=== PATIENT | female | born 1970 | race Caucasian/White ===

== ENCOUNTER 2017-03-23 15:55 | Outpatient (CLI) | payer MEDICARE, MEDICAID | END 2017-03-23 15:56 | disposition short-term general hospital (02) | LOC: EMS 15:55 | PROVIDERS: ATTEND Surgery | DX: R07.9 Chest pain, unspecified (principal) | CPT/HCPCS: A0425; A0427 ==

== ENCOUNTER 2017-05-04 02:10 | Outpatient (CLI) | payer MEDICARE, MEDICAID | END 2017-05-04 02:11 | disposition critical access hospital (66) | LOC: EMS 02:10 | PROVIDERS: ATTEND Surgery | DX: R52 Pain, unspecified (principal); W54.1XXA Struck by dog, initial encounter; W10.8XXA Fall (on) (from) other stairs and steps, initial encounter; Y92.039 Unspecified place in apartment as the place of occurrence of the external cause | CPT/HCPCS: A0425; A0429 ==

== ENCOUNTER 2017-05-04 02:25 | Emergency (ER) | payer MEDICARE, MEDICAID ==
[2017-05-04] MEDS ORDERED: ACETAMINOPHEN 500 MG TABLET PO STA (03:52)
--- NOTE | 2017-05-04 03:55 | CT Report ---
EXAM: CT HEAD EXAM DATE: 05/04/2017 03:36 AM. CLINICAL HISTORY: Fall with head injury. Ethanol intoxication. COMPARISON: 02/22/2014. TECHNIQUE: Multiaxial CT images were obtained from the foramen magnum to the vertex. Reformats: Coron al. IV contrast: None. In accordance with CT protocol optimization, one or more of the following dose reduction techniques w ere utilized for this exam: automated exposure control, adjustment of mA and/or KV based on patient s ize, or use of iterative reconstructive technique. FINDINGS: Parenchyma: No intraparenchymal hemorrhage. No evidence of mass, midline shift, or CT findings of inf arction. Sher-white differentiation is distinct. Extraaxial Spaces: Normal for age. No subdural or epidural collections identified. Ventricles: Normal in size and position. Sinuses and Orbits: Imaged paranasal sinuses, orbits, and mastoids show no significant abnormality. Bones: No evidence of fracture or calvarial defect. Other: No change since the prior study. IMPRESSION: No acute or focal intracranial abnormality. [facility] Referring Provider Line: [phone] SITE ID: [id number]
--- NOTE | 2017-05-04 03:57 | CT Report ---
EXAM: CT CERVICAL SPINE WITHOUT CONTRAST DATE: 05/04/2017 03:34 AM. HISTORY: Fall with head injury. Ethanol intoxication. COMPARISONS: None. TECHNIQUE: Thin-section axial images were acquired of the cervical spine without contrast. Post-proce ssing: Coronal and sagittal reformats. Other: None. In accordance with CT protocol optimization, one or more of the following dose reduction techniques w ere utilized for this exam: automated exposure control, adjustment of mA and/or KV based on patient s ize, or use of iterative reconstructive technique. FINDINGS: Alignment: No scoliosis or spondylolisthesis. Bones: No fracture or bone lesion. Interspace Levels/Facets: C1-C2: Unremarkable. C2-C3: Unremarkable. C3-C4: Unremarkable. C4-C5: Unremarkable. C5-C6: Disk/endplate osteophyte mildly narrows the central canal. Mild right-sided foraminal stenosis . C6-C7: Unremarkable. C7-T1: Unremarkable. Musculature: Normal. No fatty atrophy. Other: The paravertebral and prevertebral soft tissues are unremarkable. The lung apices are clear. IMPRESSION: Mild degenerative change at C5-C6. No fracture is identified. [facility] Referring Provider Line: [phone] SITE ID: [id number]
--- NOTE | 2017-05-04 04:01 | XRAY Report ---
EXAM: CHEST RADIOGRAPHY EXAM DATE: 05/04/2017 03:35 AM. CLINICAL HISTORY: Intoxication, fall down stairs. COMPARISON: 03/25/2013. TECHNIQUE: 2 views. FINDINGS: Lungs/Pleura: No alveolar consolidation or pleural effusion seen. No pneumothorax. Mediastinum: Heart and mediastinal contours are unremarkable. Other: None. IMPRESSION: 1. No acute abnormality seen in the chest. [facility] Referring Provider Line: [phone] SITE ID: [id number]
[2017-05-04 04:30] VITALS: BP 127/89
--- NOTE | 2017-05-04 04:31 | ED Physician Documentation ---
PD HPI Fall - Stated complaint Stated Complaint: FALL 13 STAIRS/ETOH - Chief complaint Chief Complaint: Ext Problem - History obtained from History obtained from: Patient, EMS - History of Present Illness Mechanism of injury: Slipped Fall distance: Other (approximately 13 steps) Where injury occurred: Home Timing - onset: Today Injury(ies) location: Head, Back Associated symptoms: AMS. No: Nausea / vomiting Contributing factors: Intoxicated Similar symptoms before: Has not had sx before Recently seen: Not recently seen - Additional information Additional information: Patient is a 46 year old female who was brought in by ems for falling down 13 stairs. Patient admits to drinking tonight and states that she was out trying to walk her dog when she slipped down the stairs. Patient is complaining of knee pain and back pain. 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 - Present Medications Home Medications: Ambulatory Orders Medication Instructions Recorded Confirmed Alprazolam [Xanax] 2 mg PO BID PRN 11/20/12 05/04/17 Omeprazole 20 mg PO BID PRN 11/20/12 05/04/17 DULoxetine [Cymbalta] 60 mg PO DAILY 06/25/13 05/04/17 Zolpidem Tartrate [Ambien] 10 mg PO QPM PRN 06/25/13 05/04/17 Atorvastatin Calcium 20 mg PO DAILY 06/15/15 05/04/17 Carvedilol 3.125 mg PO BID 06/15/15 05/04/17 Hydrocodone/Acetaminophen [Lortab 1 each PO QID 06/15/15 05/04/17 10-325 mg Tablet] Ibuprofen 200 mg PO QID PRN 06/15/15 05/04/17 Lisinopril 10 mg PO DAILY 06/15/15 05/04/17 Loperamide [Imodium] 2 mg PO QID PRN 06/15/15 05/04/17 Meloxicam [Mobic] 15 mg PO DAILY 06/15/15 05/04/17 Prazosin HCl 1 mg PO QPM 06/15/15 05/04/17 Hydrocodone/Acetaminophen 1 - 2 each PO Q6H PRN #14 tablet 10/20/15 05/04/17 [Hydrocodon-Acetaminophen 5-325] - Allergies Allergies/Adverse Reactions: Allergies Allergy/AdvReac Type Severity Reaction Status Date / Time morphine Allergy Intermediate Itching Verified 05/04/17 02:32 metformin AdvReac Intermediate violently Verified 05/04/17 02:32 ill adhesive tape Allergy Intermediate Rash Uncoded 05/04/17 02:32 - Social History Does the pt smoke?: Yes Smoking Status: Current every day smoker Does the pt drink ETOH?: Yes Does the pt have substance abuse?: No - Immunizations Immunizations are current?: Yes - POLST Patient has POLST: No PD ED PE NORMAL - Vitals Vital signs reviewed: Yes - HEENT HEENT: Atraumatic, PERRL, Dentition benign - Cardiac Cardiac: RRR, No murmur - Respiratory Respiratory: No respiratory distress, Clear bilaterally - Abdomen Abdomen: Soft, Non tender, Non distended - Derm Derm: Normal color - Neuro Eye Opening: Spontaneous Motor: Obeys Commands Verbal: Oriented GCS Score: 15 PD ED PE EXPANDED - Neck Neck: Bony TTP - Back Back: Vertebral tenderness (thoracic vertebral tenderness with no step offs) - Derm Derm: Abrasion (s) (few abrasions on lower extremities) - Extremities Extremities: Right knee (minimal abrasion, full rom) Results - Vitals Vitals: Vital Signs - 24 hr 05/04/17 05/04/17 02:30 03:57 Temperature 36.2 C L Heart Rate 101 H 86 Respiratory 16 18 Rate Blood Pressure 105/76 127/89 H O2 Saturation 96 98 Oxygen O2 Source Room air - Rads (name of study) ct head Radiology: Final report received (no acute intracranial pathology) ct c-spine Radiology: Final report received (no fracture or dislocation) thoracic spine Radiology: Final report received (no acute fracture or dislocation) PD MEDICAL DECISION MAKING - ED course Complexity details: reviewed old records, reviewed results, re-evaluated patient , considered differential, d/w patient ED course: Patient was seen and examined at bedside. Imaging was ordered. patient was treated with tylenol for pain. When patient returned from imaging the results were reviewed. patient had no acute traumatic injuries. Patient did have an episode when she was sitting on the toilet and fell forward onto her knees. Patient sustained no new injuries. Patient's friend was at bedside and was able to take the patient home when she reached an appropriate level of sobriety. Departure - Departure Disposition: 01 Home, Self Care Clinical Impression: Alcoholic intoxication Condition: Good Instructions: ED Alcohol Intoxication Follow-Up: primary,care provider [Other] - Within 3 Days Comments: Your diagnostics today were within normal limits. there were no acute fractures or dislocations. You will likely be more sore tomorrow and the next day. You can take motrin or tylenol as needed for pain. You should refrain from drinking so heavily. You should follow up with your doctor for routine care. You may return to the emergency department at any time for new, worsening or uncontrollable symptoms. Discharge Date/Time: 05/04/17 06:17
--- NOTE | 2017-05-04 05:58 | XRAY Report ---
EXAM: THORACIC SPINE RADIOGRAPHY EXAM DATE: 05/04/2017 03:36 AM. CLINICAL HISTORY: Pain after injury. Intoxication. COMPARISON: None. TECHNIQUE: 3 views. FINDINGS: Alignment: Unremarkable. Bones: No fracture seen. Disks: Mild multilevel degenerative changes. Soft Tissues: Unremarkable. IMPRESSION: 1. No acute thoracic spine abnormality seen. [facility] Referring Provider Line: [phone] SITE ID: [id number]
== END 2017-05-04 06:17 | disposition home or self-care (01) ==
LOC: EDUNIT# → ED 02:25
DX: F10.129 Alcohol abuse with intoxication, unspecified (principal); S80.211A Abrasion, right knee, initial encounter; S80.812A Abrasion, left lower leg, initial encounter; S80.811A Abrasion, right lower leg, initial encounter; W10.9XXA Fall (on) (from) unspecified stairs and steps, initial encounter; Y93.01 Activity, walking, marching and hiking; Y92.009 Unspecified place in unspecified non-institutional (private) residence as the place of occurrence of the external cause; I10 Essential (primary) hypertension; E78.00 Pure hypercholesterolemia, unspecified; E11.9 Type 2 diabetes mellitus without complications; F17.200 Nicotine dependence, unspecified, uncomplicated
CPT/HCPCS: 70450; 71020; 72072; 72125; 99283; 99284; A9270

== ENCOUNTER 2017-09-13 05:43 | Outpatient (CLI) | payer MEDICARE, MEDICAID | END 2017-09-13 05:44 | disposition critical access hospital (66) | LOC: EMS 05:43 | PROVIDERS: ATTEND Surgery | DX: M25.562 Pain in left knee (principal); W01.0XXA Fall on same level from slipping, tripping and stumbling without subsequent striking against object, initial encounter; Y93.H2 Activity, gardening and landscaping | CPT/HCPCS: A0425; A0429 ==

== ENCOUNTER 2017-09-13 05:59 | Emergency (ER) | payer MEDICARE, MEDICAID ==
[2017-09-13 06:06] VITALS: BP 97/74
--- NOTE | 2017-09-13 06:06 | ED Physician Documentation ---
PD HPI LOWER EXT INJURY - Stated complaint Stated Complaint: FALL/KNEE PAIN - History obtained from History obtained from: Patient, EMS - History of Present Illness PD HPI LOW EXT INJURY LOCATION: Left, Knee Type of injury: Fall, Twist Where injury occurred: Home Timing - onset: How many hours ago (12) Timing - details: Abrupt onset, Still present Worsened by: Moving, Palpating Associated symptoms: Swelling Similar symptoms before: Has not had sx before Recently seen: Not recently seen - Additional information Additional information: Patient is a 47 year old female with a history of fibromyalgia and peripheral neuropathy who is presenting to the emergency department for left knee pain. patient was watering plants yesterday and slipped on water on the floor and fell unto linoleum tiles. this happened about 12 hours prior. Patient tried to deal with it but was having trouble ambulating so she called ems to bring her in for evaluation. 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 - Present Medications Home Medications: Ambulatory Orders Medication Instructions Recorded Confirmed Alprazolam [Xanax] 2 mg PO BID PRN 11/20/12 05/04/17 Omeprazole 20 mg PO BID PRN 11/20/12 05/04/17 DULoxetine [Cymbalta] 60 mg PO DAILY 06/25/13 05/04/17 Zolpidem Tartrate [Ambien] 10 mg PO QPM PRN 06/25/13 05/04/17 Atorvastatin Calcium 20 mg PO DAILY 06/15/15 05/04/17 Carvedilol 3.125 mg PO BID 06/15/15 05/04/17 Hydrocodone/Acetaminophen [Lortab 1 each PO QID 06/15/15 05/04/17 10-325 mg Tablet] Ibuprofen 200 mg PO QID PRN 06/15/15 05/04/17 Lisinopril 10 mg PO DAILY 02/11/16 12/31/17 Loperamide [Imodium] 2 mg PO QID PRN 06/15/15 05/04/17 Meloxicam [Mobic] 15 mg PO DAILY 06/15/15 05/04/17 Prazosin HCl 1 mg PO QPM 06/15/15 05/04/17 Hydrocodone/Acetaminophen 1 - 2 each PO Q6H PRN #14 tablet 10/20/15 05/04/17 [Hydrocodon-Acetaminophen 5-325] - Allergies Allergies/Adverse Reactions: Allergies Allergy/AdvReac Type Severity Reaction Status Date / Time morphine Allergy Intermediate Itching Verified 09/13/17 06:06 metformin AdvReac Intermediate violently Verified 09/13/17 06:06 ill adhesive tape Allergy Intermediate Rash Uncoded 05/04/17 02:32 - Social History Does the pt smoke?: Yes Smoking Status: Current every day smoker Does the pt drink ETOH?: Yes Does the pt have substance abuse?: No - Immunizations Immunizations are current?: Yes - POLST Patient has POLST: No PD ED PE NORMAL - Vitals Vital signs reviewed: Yes - General General: Alert and oriented X 3, No acute distress - HEENT HEENT: Atraumatic - Cardiac Cardiac: RRR - Respiratory Respiratory: No respiratory distress - Derm Derm: Normal color - Neuro Neuro: Alert and oriented X 3, Normal speech Eye Opening: Spontaneous PD ED PE EXPANDED - Extremities Extremities: Tenderness, Swelling, Left knee (tenderness to palpation of left knee, no gross deformity, mild swelling, full passive rom). No: Bruising, Abrasion, Laceration Results - Vitals Vitals: Vital Signs - 24 hr 09/13/17 06:05 Temperature 36.6 C Heart Rate 97 Respiratory 19 Rate Blood Pressure 97/74 O2 Saturation 97 Oxygen O2 Source Room air - Rads (name of study) knee x-ray Radiology: Final report received (no acute fracture or dislocation) PD MEDICAL DECISION MAKING - ED course Complexity details: reviewed old records, reviewed results, re-evaluated patient , considered differential, d/w patient ED course: Patient was seen and examined at bedside. Patient was sent for imaging. When patient returned from imaging the results were reviewed. there was no acute fracture or dislocation. patient was placed in a knee immobilizer and given crutches. Patient required no further work up at this time and was stable for discharge with outpatient follow up. Departure - Departure Disposition: Home, Self Care Clinical Impression: Left knee sprain Condition: Good Instructions: ED Sprain Knee Follow-Up: Bashir Finch MD [Provider Admit Priv/Credential] - Comments: Your diagnostics today were within normal limits. there was no acute fracture or dislocation. If your symptoms persist you may need an mri for diagnosis. You should ice your knee at least 4 times, a day, and keep it elevated. You should wear the brace for comfort and take motrin or tylenol as needed for pain. You can follow up with Dr. Finch as needed. You may return to the emergency department at any time for new, worsening or uncontrollable symptoms.
[2017-09-13] MEDS ORDERED: IBUPROFEN 600 MG TABLET PO STA (06:33)
--- NOTE | 2017-09-13 06:33 | XRAY Report ---
EXAM: LEFT KNEE RADIOGRAPHY EXAM DATE: 09/13/2017 06:27 AM. CLINICAL HISTORY: Fell, knee pain. COMPARISON: 10/20/2015. TECHNIQUE: 3 views. FINDINGS: Bones: No fracture seen. Joints: No dislocation seen. Joint spaces appear preserved. Possible small joint effusion. Soft Tissues: Mild soft tissue swelling. IMPRESSION: 1. No acute fracture or dislocation seen. 2. Possible small joint effusion. [facility] Referring Provider Line: [phone] SITE ID: [id number]
== END 2017-09-13 07:02 | disposition home or self-care (01) ==
LOC: EDBD → EDUNIT# → SUPCPDRO 05:59 → ED 05:59
DX: S83.92XA Sprain of unspecified site of left knee, initial encounter (principal); W01.198A Fall on same level from slipping, tripping and stumbling with subsequent striking against other object, initial encounter; Y92.007 Garden or yard of unspecified non-institutional (private) residence as the place of occurrence of the external cause; M79.7 Fibromyalgia; E11.42 Type 2 diabetes mellitus with diabetic polyneuropathy; I10 Essential (primary) hypertension; E78.00 Pure hypercholesterolemia, unspecified; K21.9 Gastro-esophageal reflux disease without esophagitis; M19.90 Unspecified osteoarthritis, unspecified site; F17.200 Nicotine dependence, unspecified, uncomplicated; J44.9 Chronic obstructive pulmonary disease, unspecified
CPT/HCPCS: 73562; 99283; A9270

== ENCOUNTER 2017-10-31 10:39 | Outpatient (CLI) | payer MEDICARE, MEDICAID | END 2017-10-31 10:40 | disposition short-term general hospital (02) | LOC: EMS 10:39 | PROVIDERS: ATTEND Surgery | DX: R07.9 Chest pain, unspecified (principal) | CPT/HCPCS: A0425; A0427 ==

== ENCOUNTER 2017-11-22 18:47 | Outpatient (CLI) | payer MEDICARE, MEDICAID | END 2017-11-22 18:48 | disposition short-term general hospital (02) | LOC: EMS 18:47 | PROVIDERS: ATTEND Surgery | DX: R07.9 Chest pain, unspecified (principal) | CPT/HCPCS: A0425; A0427; A0888 ==

== ENCOUNTER 2018-02-25 15:51 | Outpatient (CLI) | payer MEDICARE, MEDICAID | END 2018-02-25 15:52 | disposition short-term general hospital (02) | LOC: EMS 15:51 | PROVIDERS: ATTEND Surgery | DX: R07.89 Other chest pain (principal); R42 Dizziness and giddiness | CPT/HCPCS: A0425; A0427; A0888 ==

== ENCOUNTER 2018-03-26 14:54 | Emergency (ER) | payer MEDICARE, MEDICAID, OTHER ==
[2018-03-26] MEDS ORDERED: BUFFERED LIDOCAINE 10 ML SYRINGE SUBQ STA (15:20)
--- NOTE | 2018-03-26 15:22 | ED Physician Documentation ---
PD HPI UPPER EXT INJURY - Stated complaint Stated Complaint: L THUMB LAC - Chief complaint Chief Complaint: Laceration - History obtained from History obtained from: Patient - History of Present Illness Location: Left (Ambidexterous woman who is up-to-date on tetanus stabbed herself accidentally with a knife while trying to open a can a cranberries just prior to arrival.) PD PAST MEDICAL HISTORY - Past Medical History Cardiovascular: Hypertension, High cholesterol Respiratory: Asthma, COPD, Pneumonia Neuro: None Endocrine/Autoimmune: Type 2 diabetes GI: GERD HEENT: None Psych: Depression, Anxiety Musculoskeletal: Osteoarthritis, Fibromyalgia - Past Surgical History Past Surgical History: Yes General: Appendectomy 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 - Present Medications Home Medications: Ambulatory Orders Medication Instructions Recorded Confirmed Alprazolam [Xanax] 2 mg PO BID PRN 11/20/12 05/04/17 Omeprazole 20 mg PO BID PRN 11/20/12 05/04/17 Zolpidem Tartrate [Ambien] 10 mg PO QPM PRN 06/25/13 05/04/17 Atorvastatin Calcium 20 mg PO DAILY 06/15/15 05/04/17 Carvedilol 3.125 mg PO BID 06/15/15 05/04/17 Ibuprofen 200 mg PO QID PRN 06/15/15 05/04/17 Lisinopril 10 mg PO DAILY 06/15/15 05/04/17 Loperamide [Imodium] 2 mg PO QID PRN 06/15/15 05/04/17 Prazosin HCl 1 mg PO QPM 06/15/15 05/04/17 FLUoxetine [PROzac] 03/26/18 03/26/18 Gabapentin 0 03/26/18 03/26/18 Isosorbide Mononitrate 03/26/18 - Allergies Allergies/Adverse Reactions: Allergies Allergy/AdvReac Type Severity Reaction Status Date / Time morphine Allergy Intermediate Itching Verified 09/13/17 06:06 metformin AdvReac Intermediate violently Verified 03/26/18 15:00 ill adhesive tape Allergy Intermediate Rash Uncoded 05/04/17 02:32 - Social History Does the pt smoke?: Yes Smoking Status: Current every day smoker Does the pt drink ETOH?: Yes Does the pt have substance abuse?: No - Immunizations Immunizations are current?: Yes - POLST Patient has POLST: No PD ED PE NORMAL - Vitals Vital signs reviewed: Yes - General General: Alert and oriented X 3, No acute distress - Extremities Extremities: Other (2cm lac in the first webscpace towards the thumb side with normal sensation in the thumb. ) - Neuro Neuro: Alert and oriented X 3, Normal speech - Psych Psych: Normal mood, Normal affect Results - Vitals Vitals: Vital Signs - 24 hr 03/26/18 14:58 Temperature 36.6 C Heart Rate 74 Respiratory 20 Rate Blood Pressure 111/72 O2 Saturation 96 Oxygen O2 Source Room air Procedures - Laceration (location) L hand Length in cm: 1.5 Wound type: Linear Neurovascular status: Sensory intact, Motor intact, Vascular intact Anesthesia: Lidocaine 1%, With bicarb Wound Preparation: Betadine, Irrigated copiously NS Skin layer closure: Nylon, Interrupted, Size #-0 - enter number (4-0), Sutures - enter # (3) Other: Tetanus UTD Complexity: Simple Departure - Departure Disposition: 01 Home, Self Care Clinical Impression: Laceration Condition: Good Record reviewed to determine appropriate education?: Yes Instructions: ED Laceration Hand Comments: Come back for any signs of infection which would include: Redness, swelling, drainage, increased pain, or fevers. Follow-up with your physician in 14 days for suture removal.
[2018-03-26 15:53] VITALS: BP 112/70
== END 2018-03-26 15:52 | disposition home or self-care (01) ==
LOC: ED 14:54
DX: S61.012A Laceration without foreign body of left thumb without damage to nail, initial encounter (principal); W26.0XXA Contact with knife, initial encounter; Y93.G1 Activity, food preparation and clean up; I10 Essential (primary) hypertension; J44.9 Chronic obstructive pulmonary disease, unspecified; E11.9 Type 2 diabetes mellitus without complications; F17.200 Nicotine dependence, unspecified, uncomplicated
CPT/HCPCS: 12001; 99282; 99283

== ENCOUNTER 2018-08-03 10:09 | Outpatient (CLI) | payer MEDICARE, OTHER, MEDICAID | END 2018-08-03 10:10 | disposition short-term general hospital (02) | LOC: EMS 10:09 | PROVIDERS: ATTEND Surgery | DX: R07.9 Chest pain, unspecified (principal); M79.602 Pain in left arm; R20.0 Anesthesia of skin | CPT/HCPCS: A0425; A0427 ==

== ENCOUNTER 2018-10-12 02:44 | Outpatient (CLI) | payer MEDICARE, MEDICAID, OTHER | END 2018-10-12 02:45 | disposition critical access hospital (66) | LOC: EMS 02:44 | PROVIDERS: ATTEND Surgery | DX: R41.82 Altered mental status, unspecified (principal); R46.89 Other symptoms and signs involving appearance and behavior | CPT/HCPCS: A0425; A0429 ==

== ENCOUNTER 2018-10-12 03:01 | Emergency (ER) | payer MEDICARE, MEDICAID, OTHER ==
--- NOTE | 2018-10-12 04:41 | ED Physician Documentation ---
PD HPI ALTERED MENTAL STATUS - Stated complaint Stated Complaint: HBD - Chief complaint Chief Complaint: MHE - History obtained from History obtained from: Patient, EMS - History of Present Illness Timing - onset: Today Quality / character: Confused, Disoriented Basline status: Alert and oriented X 3, Ambulatory, Independent Recently seen: Not recently seen - Additional information Additional information: BIBA. patient was in communication with a friend in [place] (video w/ audio) to night, patient reportedly indicated to friend she did not feel well, became confused, and friend called 911. Review of Systems Constitutional: reports: Reviewed and negative Cardiac: reports: Reviewed and negative Respiratory: reports: Reviewed and negative GI: reports: Reviewed and negative : denies: Dysuria, Frequency, Now EGA Neurologic: reports: Confused, Altered mental status. 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 - Present Medications Home Medications: Ambulatory Orders Medication Instructions Recorded Confirmed Alprazolam [Xanax] 2 mg PO BID PRN 11/20/12 05/04/17 Omeprazole 20 mg PO BID PRN 11/20/12 05/04/17 Zolpidem Tartrate [Ambien] 10 mg PO QPM PRN 06/25/13 05/04/17 Atorvastatin Calcium 20 mg PO DAILY 06/15/15 05/04/17 Carvedilol 3.125 mg PO BID 06/15/15 05/04/17 Ibuprofen 200 mg PO QID PRN 06/15/15 05/04/17 Lisinopril 10 mg PO DAILY 06/15/15 05/04/17 Loperamide [Imodium] 2 mg PO QID PRN 06/15/15 05/04/17 Prazosin HCl 1 mg PO QPM 06/15/15 05/04/17 FLUoxetine [PROzac] 03/26/18 03/26/18 Gabapentin 0 03/26/18 03/26/18 Isosorbide Mononitrate 03/26/18 - Allergies Allergies/Adverse Reactions: Allergies Allergy/AdvReac Type Severity Reaction Status Date / Time morphine Allergy Intermediate Itching Verified 09/13/17 06:06 metformin AdvReac Intermediate violently Verified 03/26/18 15:00 ill adhesive tape Allergy Intermediate Rash Uncoded 05/04/17 02:32 - Social History Does the pt smoke?: Yes Smoking Status: Current every day smoker Does the pt drink ETOH?: Yes Does the pt have substance abuse?: No - Immunizations Immunizations are current?: Yes - POLST Patient has POLST: No PD ED PE NORMAL - Vitals Vital signs reviewed: Yes - General General: Alert and oriented X 3, No acute distress, Well developed/nourished - HEENT HEENT: Atraumatic, PERRL, EOMI, Moist mucous membranes - Neck Neck: Supple, no meningeal sign - Cardiac Cardiac: RRR, No murmur - Respiratory Respiratory: No respiratory distress, Clear bilaterally - Abdomen Abdomen: Soft, Non tender - Derm Derm: Normal color, Warm and dry - Neuro Neuro: Alert and oriented X 3, 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, No motor deficit, No sensory deficit, Normal speech Eye Opening: Spontaneous Motor: Obeys Commands Verbal: Oriented GCS Score: 15 - Psych Psych: Normal mood, Normal affect Results - Vitals Vitals: Oxygen O2 Source Room air - Labs Labs: Laboratory Tests 10/12/18 10/12/18 10/12/18 03:25 03:25 05:00 WBC 10.7 RBC 4.84 Hgb 14.4 Hct 42.5 MCV 87.7 MCH 29.7 MCHC 33.8 RDW 15.4 H Plt Count 345 MPV 8.1 Neut # (Auto) 6.0 Lymph # (Auto) 3.8 H Stephenson # (Auto) 0.8 Eos # (Auto) 0.1 Baso # (Auto) 0.0 Absolute Nucleated RBC 0.01 Nucleated RBC % 0.1 Sodium 148 H Potassium 3.6 Chloride 109 Carbon Dioxide 20 L Anion Gap 19.0 H BUN 6 Creatinine 0.6 Estimated GFR (MDRD) 106 Glucose 141 H Calcium 8.9 Total Bilirubin 0.5 AST 26 ALT 22 Alkaline Phosphatase 78 Total Protein 7.8 Albumin 4.0 Globulin 3.8 Albumin/Globulin Ratio 1.1 Lipase 88 H U Random Total Protein 9 Urine Opiates Screen Ur Oxycodone Screen Urine Methadone Screen Ur Propoxyphene Screen Ur Barbiturates Screen Ur Tricyclics Screen Ur Phencyclidine Scrn Ur Amphetamine Screen U Methamphetamines Scrn U Benzodiazepines Scrn Urine Cocaine Screen U Cannabinoids Screen Ethyl Alcohol 246.7 10/12/18 05:00 WBC RBC Hgb Hct MCV MCH MCHC RDW Plt Count MPV Neut # (Auto) Lymph # (Auto) Stephenson # (Auto) Eos # (Auto) Baso # (Auto) Absolute Nucleated RBC Nucleated RBC % Sodium Potassium Chloride Carbon Dioxide Anion Gap BUN Creatinine Estimated GFR (MDRD) Glucose Calcium Total Bilirubin AST ALT Alkaline Phosphatase Total Protein Albumin Globulin Albumin/Globulin Ratio Lipase U Random Total Protein Urine Opiates Screen NEGATIVE Ur Oxycodone Screen NEGATIVE Urine Methadone Screen NEGATIVE Ur Propoxyphene Screen NEGATIVE Ur Barbiturates Screen NEGATIVE Ur Tricyclics Screen NEGATIVE Ur Phencyclidine Scrn NEGATIVE Ur Amphetamine Screen NEGATIVE U Methamphetamines Scrn NEGATIVE U Benzodiazepines Scrn NEGATIVE Urine Cocaine Screen NEGATIVE U Cannabinoids Screen POSITIVE H Ethyl Alcohol - Rads (name of study) CT head Radiology: Prelim report reviewed, See rad report PD MEDICAL DECISION MAKING - ED course Complexity details: reviewed old records, reviewed results, re-evaluated patient, considered differential, d/w patient ED course: Patient is confused on arrival, repeatedly calling out help me (despite EDRN repeatedly trying to reassure and reorient patient). Early in ED stay, patients confusion and agitation rapidly resolved. She admits to alcohol and marijuana use tonight, denies drug use. Test results are reassuring and patient remained AAOx3 for remainder of ED stay. Departure - Departure Disposition: 01 Home, Self Care Clinical Impression: Altered mental status Qualifiers: Altered mental status type: unspecified Qualified Code(s): R41.82 - Altered mental status, unspecified Condition: Good Instructions: ED Altered Loc Discharge Date/Time: 10/12/18 06:20
[2018-10-12 05:03] LABS: MUDS CUTOFF CONCENTRATIONS CUTOFF CONC BELOW:
[2018-10-12] MEDS ORDERED: SODIUM CHLORIDE 0.9% 1,000 ML IV STA (05:05)
[2018-10-12 05:10] LABS: BASOPHILS % (AUTO) 0.4 %; EOSINOPHILS # (AUTO) 0.1 10^3/uL (0.0-0.7); EOSINOPHILS % (AUTO) 0.8 %; HGB - HEMOGLOBIN 14.4 g/dL (12.0-16.0); LYMPHOCYTES # (AUTO) 3.8 10^3/uL (1.5-3.5); LYMPHOCYTES % (AUTO) 35.3 %; MEAN CORPUSCULAR HEMOGLOBIN 29.7 pg (27.0-31.0); MEAN CORPUSCULAR HGB CONC 33.8 g/dL (32.0-36.0); MEAN CORPUSCULAR VOLUME 87.7 fL (81.0-99.0); MEAN PLATELET VOLUME 8.1 fL (7.9-10.8); MONOCYTES # (AUTO) 0.8 10^3/uL (0.0-1.0); MONOCYTES % (AUTO) 7.4 %; NEUTROPHILS % (AUTO) 56.1 %; PLT - PLATELET COUNT 345 10^3/uL (130-450); RED BLOOD COUNT 4.84 10^6/uL (4.20-5.40); RED CELL DISTRIBUTION WIDTH 15.4 % (12.0-15.0); WHITE BLOOD COUNT 10.7 x10^3/uL (4.8-10.8)
[2018-10-12 05:14] LABS: AMPHETAMINE SCREEN,URINE NEGATIVE (NEGATIVE); BENZODIAZEPINES SCREEN, URINE NEGATIVE (NEGATIVE); COCAINE SCREEN URINE NEGATIVE (NEGATIVE); METHADONE SCREEN, URINE NEGATIVE (NEGATIVE); METHAMPHETAMINES SCREEN, URINE NEGATIVE (NEGATIVE); OPIATE SCREEN, URINE NEGATIVE (NEGATIVE); OXYCODONE SCREEN, URINE NEGATIVE (NEGATIVE); PROPOXYPHENE SCREEN, URINE NEGATIVE (NEGATIVE); TRICYCLIC ANTIDEPRESSANT,URINE NEGATIVE (NEGATIVE)
[2018-10-12 05:22] LABS: ALBUMIN/GLOBULIN RATIO 1.1 (1.0-2.2); BILIRUBIN,TOTAL 0.5 mg/dL (0.2-1.0); CALCIUM 8.9 mg/dL (8.5-10.3); CREATININE 0.6 mg/dL (0.4-1.0); TOTAL PROTEIN 7.8 g/dL (6.7-8.2)
--- NOTE | 2018-10-12 05:40 | CT Report ---
Reason: AMS Procedure Date: 10/12/2018 Accession Number: [id number] / [id number] Procedure: CT - HEAD WO CPT Code: FULL RESULT: EXAM: CT HEAD EXAM DATE: 10/12/2018 05:16 AM. CLINICAL HISTORY: AMS. COMPARISON: HEAD W/O 05/04/2017 2:59 AM. TECHNIQUE: Multiaxial CT images were obtained from the foramen magnum to the vertex. Reformats: Sagittal and coronal. IV contrast: None. In accordance with CT protocol optimization, one or more of the following dose reduction techniques were utilized for this exam: automated exposure control, adjustment of mA and/or KV based on patient size, or use of iterative reconstructive technique. FINDINGS: Parenchyma: No intraparenchymal hemorrhage. No evidence of mass, midline shift, or CT findings of infarction. Sher-white differentiation is distinct. Extraaxial Spaces: Normal for age. No subdural or epidural collections identified. Ventricles: Normal in size and position. Sinuses and Orbits: Imaged paranasal sinuses, orbits, and mastoids show no significant abnormality. Bones: No evidence of fracture or calvarial defect. Other: None. IMPRESSION: Negative noncontrast CT head. No significant change compared to 05/04/2017. RADIA
[2018-10-12 06:01] VITALS: BP 134/86
== END 2018-10-12 06:20 | disposition home or self-care (01) ==
LOC: EDUNIT# → ED 03:01
DX: R41.82 Altered mental status, unspecified (principal); R45.1 Restlessness and agitation; I10 Essential (primary) hypertension; E11.9 Type 2 diabetes mellitus without complications; F10.10 Alcohol abuse, uncomplicated; F12.90 Cannabis use, unspecified, uncomplicated; F17.200 Nicotine dependence, unspecified, uncomplicated
CPT/HCPCS: 36415; 70450; 80053; 80306; 80320; 83690; 84156; 85025; 99283

== ENCOUNTER 2018-11-23 11:47 | Emergency (ER) | payer MEDICARE, MEDICAID, OTHER ==
[2018-11-23 12:23] VITALS: BP 143/91
--- NOTE | 2018-11-23 13:47 | ED Physician Documentation ---
PD HPI LOWER EXT INJURY - Stated complaint Stated Complaint: LT HIP PX - Chief complaint Chief Complaint: Trauma Ext - History obtained from History obtained from: Patient - History of Present Illness PD HPI LOW EXT INJURY LOCATION: Left (Twisted to left at 11am and felt a pop in the hip. 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 - Present Medications Home Medications: Ambulatory Orders Medication Instructions Recorded Confirmed Alprazolam [Xanax] 2 mg PO BID PRN 11/20/12 05/04/17 RX: Omeprazole 20 mg PO BID PRN 11/20/12 05/04/17 Zolpidem Tartrate [Ambien] 10 mg PO QPM PRN 06/25/13 05/04/17 Loperamide [Imodium] 2 mg PO QID PRN 06/15/15 05/04/17 RX: Atorvastatin Calcium 20 mg PO DAILY 06/15/15 05/04/17 RX: Carvedilol 3.125 mg PO BID 06/15/15 05/04/17 RX: Ibuprofen 200 mg PO QID PRN 06/15/15 05/04/17 RX: Lisinopril 10 mg PO DAILY 06/15/15 05/04/17 RX: Prazosin HCl 1 mg PO QPM 06/15/15 05/04/17 RX: FLUoxetine [PROzac] 03/26/18 03/26/18 RX: Gabapentin 0 03/26/18 03/26/18 RX: Isosorbide Mononitrate 03/26/18 Ibuprofen [Motrin] 800 mg PO Q8H PRN #30 tablet 11/23/18 Oxycodone HCl/Acetaminophen 1 - 2 each PO Q6H PRN #14 tablet 11/23/18 [Percocet 5-325 mg Tablet] - Allergies Allergies/Adverse Reactions: Allergies Allergy/AdvReac Type Severity Reaction Status Date / Time morphine Allergy Intermediate Itching Verified 09/13/17 06:06 metformin AdvReac Intermediate violently Verified 03/26/18 15:00 ill adhesive tape Allergy Intermediate Rash Uncoded 05/04/17 02:32 - Social History Does the pt smoke?: Yes Smoking Status: Current every day smoker Does the pt drink ETOH?: Yes Does the pt have substance abuse?: No - Immunizations Immunizations are current?: Yes - POLST Patient has POLST: No PD ED PE NORMAL - Vitals Vital signs reviewed: Yes - General General: Alert and oriented X 3, No acute distress - HEENT HEENT: PERRL, EOMI - Neck Neck: Supple, no meningeal sign, No bony TTP - Cardiac Cardiac: RRR, No murmur - Respiratory Respiratory: No respiratory distress, Clear bilaterally - Abdomen Abdomen: Non tender - Back Back: No CVA TTP, No spinal TTP - Derm Derm: Normal color, Warm and dry - Neuro Neuro: Alert and oriented X 3, Normal speech Results - Vitals Vitals: Vital Signs - 24 hr 11/23/18 12:18 Temperature 36.8 C Heart Rate 72 Respiratory 18 Rate Blood Pressure 143/91 H O2 Saturation 97 Oxygen O2 Source Room air - Rads (name of study) Hip XR Radiology: EMP read contemporaneously (osteophytes, NAD) PD MEDICAL DECISION MAKING - ED course ED course: Hip injury, just a twisting injury, x-ray negative and no osteopenia. She was able to walk and bear weight with the assistance of a walker. Departure - Departure Disposition: 01 Home, Self Care Clinical Impression: Sprain of left hip Condition: Good Record reviewed to determine appropriate education?: Yes Instructions: ED Sprain Hip Prescriptions: Ibuprofen [Motrin] 800 mg PO Q8H PRN #30 tablet PRN Reason: PAIN &/OR FEVER Oxycodone HCl/Acetaminophen [Percocet 5-325 mg Tablet] 1 - 2 each PO Q6H PRN #14 tablet PRN Reason: pain Comments: He can walk and bear weight with a walker. Return for new or worsening symptoms. Follow-up with your doctor in 1 week if not better, return if worse. Your blood pressure was elevated today on check into the emergency department. This does not mean that you have hypertension, it is a common phenomenon to come to the emergency department and have elevated blood pressure. I recommend that you see your primary care physician within the week to have it rechecked when you are feeling better. Do not drink or drive while taking narcotic pain medication. Note that many narcotic pain relievers also contain Tylenol/acetaminophen. Please ensure that your total dose of acetaminophen from all sources does not exceed 3 g (3000 mg) per day. You may get constipated while on this medication. Take a stool softener such as Colace twice a day while you are on it. Also add an [id number] laxative such as senna or MiraLAX on any day that you do not have a bowel movement. If you received a narcotic pain medication or sedative while in the emergency department, do not drive for the next 24 hours. Discharge Date/Time: 11/23/18 14:57
[2018-11-23] MEDS ORDERED: oxyCODONE 5 MG TABLET PO STA (13:48)
--- NOTE | 2018-11-23 14:08 | XRAY Report ---
Reason: hip injury Procedure Date: 11/23/2018 Accession Number: [id number] / [id number] Procedure: XR - Hip w/Pelvis 2-3V LT CPT Code: FULL RESULT: EXAM: LEFT HIP RADIOGRAPHY EXAM DATE: 11/23/2018 01:52 PM. CLINICAL HISTORY: Left hip pain after a twisting injury today. COMPARISON: None. TECHNIQUE: 2 views. FINDINGS: Bones: Normal. No fractures or bone lesion. Joints: There is no acute fracture or dislocation. Prominent acetabular osteophytosis and overhang is seen on the left. No subluxation. Soft Tissues: Normal. No soft tissue swelling. IMPRESSION: No acute fracture or dislocation. RADIA
== END 2018-11-23 14:57 | disposition home or self-care (01) ==
LOC: ED 11:47
DX: S73.102A Unspecified sprain of left hip, initial encounter (principal); X50.1XXA Overexertion from prolonged static or awkward postures, initial encounter; Y93.89 Activity, other specified; I10 Essential (primary) hypertension; E11.9 Type 2 diabetes mellitus without complications; F17.200 Nicotine dependence, unspecified, uncomplicated
CPT/HCPCS: 73502; 99281; 99283; A9270

== ENCOUNTER 2018-11-27 11:07 | Emergency (ER) | payer MEDICARE, MEDICAID, OTHER ==
[2018-11-27 11:14] VITALS: BP 136/79
--- NOTE | 2018-11-27 11:53 | XRAY Report ---
Reason: fall, unable to ambulate. Procedure Date: 11/27/2018 Accession Number: [id number] / [id number] Procedure: XR - Hip w/Pelvis 2-3V LT CPT Code: FULL RESULT: EXAM: LEFT HIP RADIOGRAPHY EXAM DATE: 11/27/2018 11:31 AM. CLINICAL HISTORY: Fall. Unable to ambulate. Pain. COMPARISON: HIP W/PELVIS 2-3V LT 11/23/2018 1:46 PM. TECHNIQUE: 2 views. FINDINGS: Bones: No acute fracture or bony lesion. Degenerative spurring. Joints: Normal alignment. Mild joint space narrowing. No dislocation. Degenerative changes of the right hip joint and lower lumbar spine. Soft Tissues: Surgical clips again seen projected over the right lower quadrant. IMPRESSION: 1. No acute osseous abnormalities. Normal alignment. If there is a high clinical suspicion for an occult fracture then MRI recommended. 2. Degenerative changes of the left hip joint. RADIA
--- NOTE | 2018-11-27 13:57 | ED Physician Documentation ---
PD HPI LOWER EXT INJURY - Stated complaint Stated Complaint: LT HIP INJURY - Chief complaint Chief Complaint: Ext Problem - History obtained from History obtained from: Patient - History of Present Illness PD HPI LOW EXT INJURY LOCATION: Left, Hip Type of injury: Twist Where injury occurred: Home Timing - onset: How many days ago (2) Timing - duration: Days (2) Timing - details: Abrupt onset, Still present Severity Comments: severe Improved by: Nothing Worsened by: Moving, Palpating Associated symptoms: No: Weakness, Numbness, Tingling, Swelling, Discolored Contributing factors: No: Anticoagulated, Prior ortho surgery, Prosthetic joint, Work related Similar symptoms before: Has not had sx before Recently seen: Emergency Dept (had xrays which were negative yesterday) - Treatment prior to arrival Treatment prior to arrival: hydrocodone and ibuprofen Review of Systems Ten Systems: 10 systems reviewed and negative Constitutional: denies: Fever, Chills Cardiac: reports: Reviewed and negative Respiratory: reports: Reviewed and negative GI: denies: Abdominal Pain : reports: Reviewed and negative Skin: reports: Reviewed and negative Musculoskeletal: reports: Joint pain. 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 - Present Medications Home Medications: Ambulatory Orders Medication Instructions Recorded Confirmed Alprazolam [Xanax] 2 mg PO BID PRN 11/20/12 05/04/17 RX: Omeprazole 20 mg PO BID PRN 11/20/12 05/04/17 Zolpidem Tartrate [Ambien] 10 mg PO QPM PRN 06/25/13 05/04/17 Loperamide [Imodium] 2 mg PO QID PRN 06/15/15 05/04/17 RX: Atorvastatin Calcium 20 mg PO DAILY 06/15/15 05/04/17 RX: Carvedilol 3.125 mg PO BID 06/15/15 05/04/17 RX: Ibuprofen 200 mg PO QID PRN 06/15/15 05/04/17 RX: Lisinopril 10 mg PO DAILY 06/15/15 05/04/17 RX: Prazosin HCl 1 mg PO QPM 06/15/15 05/04/17 RX: FLUoxetine [PROzac] 03/26/18 03/26/18 RX: Gabapentin 0 03/26/18 03/26/18 RX: Isosorbide Mononitrate 03/26/18 Ibuprofen [Motrin] 800 mg PO Q8H PRN #30 tablet 11/23/18 Oxycodone HCl/Acetaminophen 1 - 2 each PO Q6H PRN #14 tablet 11/23/18 [Percocet 5-325 mg Tablet] - Allergies Allergies/Adverse Reactions: Allergies Allergy/AdvReac Type Severity Reaction Status Date / Time morphine Allergy Intermediate Itching Verified 09/13/17 06:06 metformin AdvReac Intermediate violently Verified 03/26/18 15:00 ill adhesive tape Allergy Intermediate Rash Uncoded 05/04/17 02:32 - Social History Does the pt smoke?: Yes Smoking Status: Current every day smoker Does the pt drink ETOH?: Yes Does the pt have substance abuse?: No - Immunizations Immunizations are current?: Yes - POLST Patient has POLST: No PD ED PE NORMAL - Vitals Vital signs reviewed: Yes - General General: Alert and oriented X 3, No acute distress, Well developed/nourished - HEENT HEENT: Atraumatic - Neck Neck: Supple, no meningeal sign - Cardiac Cardiac: RRR - Respiratory Respiratory: No respiratory distress - Abdomen Abdomen: Soft, Non tender, Non distended - Female Female : Deferred - Rectal Rectal: Deferred - Derm Derm: Normal color, Warm and dry, No rash - Neuro Neuro: Alert and oriented X 3, No motor deficit, No sensory deficit Eye Opening: Spontaneous Motor: Obeys Commands Verbal: Oriented GCS Score: 15 - Psych Psych: Normal mood, Normal affect PD ED PE EXPANDED - Extremities Extremities: Motor intact, Sensory intact, Vascular intact, Other (left hip tenderness to palaption, normal weight bearing and full ROM ) Results - Vitals Vitals: Vital Signs - 24 hr 11/27/18 11:11 Temperature 36.6 C Heart Rate 99 Respiratory 18 Rate Blood Pressure 136/79 H O2 Saturation 97 Oxygen O2 Source Room air - Rads (name of study) left hip xray Radiology: Final report received, EMP read contemporaneously, See rad report (negative) PD MEDICAL DECISION MAKING - ED course Complexity details: reviewed old records, reviewed results, considered differential, d/w patient ED course: DDx -hip fx, hip strain, contusion, pelvic fx Discussed ordering a CT to evaluate for occult fx but pt eloped prior to obtaining the images. Departure - Departure Disposition: ED Elope Clinical Impression: Strain of left hip Condition: Stable Record reviewed to determine appropriate education?: Yes Discharge Date/Time: 11/27/18 14:00
== END 2018-11-27 14:00 | disposition left against medical advice (07) ==
LOC: ED 11:07
DX: S76.012A Strain of muscle, fascia and tendon of left hip, initial encounter (principal); X50.1XXA Overexertion from prolonged static or awkward postures, initial encounter; Y92.009 Unspecified place in unspecified non-institutional (private) residence as the place of occurrence of the external cause; M16.12 Unilateral primary osteoarthritis, left hip; I10 Essential (primary) hypertension; E11.9 Type 2 diabetes mellitus without complications; F17.200 Nicotine dependence, unspecified, uncomplicated; Z53.20 Procedure and treatment not carried out because of patient's decision for unspecified reasons
CPT/HCPCS: 99282; 99283

== ENCOUNTER 2019-01-09 23:01 | Outpatient (CLI) | payer MEDICARE, MEDICAID, OTHER | END 2019-01-09 23:02 | disposition EMS.NT | LOC: EMS 23:01 | PROVIDERS: ATTEND Surgery | DX: R51 Headache (principal); Y04.2XXA Assault by strike against or bumped into by another person, initial encounter ==

== ENCOUNTER 2019-01-10 05:24 | Outpatient (CLI) | payer MEDICARE, MEDICAID, OTHER | END 2019-01-10 05:25 | disposition short-term general hospital (02) | LOC: EMS 05:24 | PROVIDERS: ATTEND Surgery | DX: R51 Headache (principal); R22.0 Localized swelling, mass and lump, head; Y04.2XXA Assault by strike against or bumped into by another person, initial encounter | CPT/HCPCS: A0425; A0429; A0888 ==

== ENCOUNTER 2019-03-26 15:03 | Outpatient (CLI) | payer MEDICARE, MEDICAID | END 2019-03-26 15:04 | disposition critical access hospital (66) | LOC: EMS 15:03 | PROVIDERS: ATTEND Surgery | DX: R47.81 Slurred speech (principal); R07.89 Other chest pain; R29.810 Facial weakness; R20.0 Anesthesia of skin | CPT/HCPCS: A0425; A0427 ==

== ENCOUNTER 2019-03-26 15:20 | Emergency (ER) | payer MEDICARE, MEDICAID, OTHER ==
--- NOTE | 2019-03-26 15:30 | ED Physician Documentation ---
History of Present Illness - Stated complaint Stated Complaint: STROKE - Additonal information Additional information: This is a 48-year-old female with a reported history of anxiety, past TIAs and alcohol use who presents with left-sided weakness. This occurred at around 13: 15, patient has had 1-2 drinks with friends earlier in the day and then she began having weakness in her left side and difficulty speaking. EMS was called patient reportedly wanted to stay home and they had difficulty convincing her to come to the hospital. Currently she states that she feels weak on the left side and she is having difficulty putting her words together. 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 - Present Medications Home Medications: Ambulatory Orders Medication Instructions Recorded Confirmed Alprazolam [Xanax] 2 mg PO BID PRN 11/20/12 05/04/17 Omeprazole 20 mg PO BID PRN 11/20/12 05/04/17 Zolpidem Tartrate [Ambien] 10 mg PO QPM PRN 06/25/13 05/04/17 Atorvastatin Calcium 20 mg PO DAILY 06/15/15 05/04/17 Ibuprofen 200 mg PO QID PRN 06/15/15 05/04/17 Lisinopril 10 mg PO DAILY 06/15/15 05/04/17 Loperamide [Imodium] 2 mg PO QID PRN 06/15/15 05/04/17 Prazosin HCl 1 mg PO QPM 06/15/15 05/04/17 carvediloL [Carvedilol] 3.125 mg PO BID 06/15/15 05/04/17 FLUoxetine [PROzac] 03/26/18 03/26/18 Gabapentin 0 03/26/18 03/26/18 Isosorbide Mononitrate 03/26/18 Ibuprofen [Motrin] 800 mg PO Q8H PRN #30 tablet 07/22/19 Oxycodone HCl/Acetaminophen 1 - 2 each PO Q6H PRN #14 tablet 11/23/18 [Percocet 5-325 mg Tablet] - Allergies Allergies/Adverse Reactions: Allergies Allergy/AdvReac Type Severity Reaction Status Date / Time morphine Allergy Intermediate Itching Verified 09/13/17 06:06 metformin AdvReac Intermediate violently Verified 03/26/18 15:00 ill adhesive tape Allergy Intermediate Rash Uncoded 05/04/17 02:32 - Social History Does the pt smoke?: Yes Smoking Status: Current every day smoker Does the pt drink ETOH?: Yes Does the pt have substance abuse?: No - Immunizations Immunizations are current?: Yes - POLST Patient has POLST: No PD ED PE NORMAL - Vitals Vital signs reviewed: Yes - General General: Alert and oriented X 3 - HEENT HEENT: Atraumatic, PERRL - Neck Neck: Supple, no meningeal sign - Cardiac Cardiac: RRR - Respiratory Respiratory: No respiratory distress - Abdomen Abdomen: Soft, Non tender, Non distended - Back Back: No CVA TTP - Derm Derm: Normal color - Extremities Extremities: No deformity, No tenderness to palpate - Neuro Neuro: Other (Patient is awake, alert, is answering questions. She has an odd manner of the speech where at times she will have very halting speech, and at times her speech is fairly normal for short phrases. Her sentence structure is normal and she does not have difficulty choosing words. Her pronunciation is quite good intermittently. She has no facial droop, her cranial nerves II through XII are all normal to testing. On strength testing she is unable to lift her left arm off the bed, but then when I test her coordination for dysmetria she has full 5 out of 5 strength with her left arm and is able to hold arm up for over 10 seconds. When distracted she has normal movements of all extremities. She has a volitional appearing and only intermittent dysmetria on the left as at times her hand is stable at times she moves it and wobbly circles. She is unable to lift her left leg off the bed on my testing, she has full 5 out of 5 strength with her right leg and her right arm.) Results - Vitals Vitals: Vital Signs - 24 hr 03/26/19 03/26/19 03/26/19 15:21 15:43 16:00 Temperature 36.7 C Heart Rate 104 H 99 109 H Respiratory 18 15 23 Rate Blood Pressure 130/103 H 115/90 H 123/81 H O2 Saturation 97 98 96 03/26/19 03/26/19 03/26/19 16:30 17:00 17:21 Temperature Heart Rate 105 H 98 92 Respiratory 27 H 16 16 Rate Blood Pressure 115/93 H 115/93 H O2 Saturation 97 97 03/26/19 03/26/19 17:30 18:32 Temperature Heart Rate 100 99 Respiratory 18 18 Rate Blood Pressure 130/79 130/79 O2 Saturation 95 99 Oxygen O2 Source Room air - Labs Labs: Laboratory Tests 03/26/19 03/26/19 03/26/19 16:13 16:13 16:13 WBC 8.9 RBC 4.64 Hgb 13.6 Hct 41.8 MCV 90.1 MCH 29.3 MCHC 32.5 RDW 15.2 H Plt Count 346 MPV 9.2 Neut # (Auto) 4.3 Lymph # (Auto) 3.6 H Darke # (Auto) 0.7 Eos # (Auto) 0.2 Baso # (Auto) 0.1 Absolute Nucleated RBC 0.00 Nucleated RBC % 0.0 PT 10.5 INR 0.9 Sodium 143 Potassium 3.7 Chloride 109 Carbon Dioxide 22 Anion Gap 12.0 BUN 12 Creatinine 0.5 Estimated GFR (MDRD) 131 Glucose 139 H Calcium 8.8 Total Bilirubin 0.3 AST 20 ALT 23 Alkaline Phosphatase 69 Troponin I High Sens Total Protein 7.6 Albumin 4.0 Globulin 3.6 Albumin/Globulin Ratio 1.1 Lipase 46 TSH Urine Color Urine Clarity Urine pH Ur Specific [place] Urine Protein Urine Glucose (UA) Urine Ketones Urine Occult Blood Urine Nitrite Urine Bilirubin Urine Urobilinogen Ur Leukocyte Esterase Ur Microscopic Review Urine Culture Comments Urine Opiates Screen Ur Oxycodone Screen Urine Methadone Screen Ur Propoxyphene Screen Ur Barbiturates Screen Ur Tricyclics Screen Ur Phencyclidine Scrn Ur Amphetamine Screen U Methamphetamines Scrn U Benzodiazepines Scrn Urine Cocaine Screen U Cannabinoids Screen Ethyl Alcohol 169.8 03/26/19 03/26/19 03/26/19 16:13 16:13 16:23 WBC RBC Hgb Hct MCV MCH MCHC RDW Plt Count MPV Neut # (Auto) Lymph # (Auto) Darke # (Auto) Eos # (Auto) Baso # (Auto) Absolute Nucleated RBC Nucleated RBC % PT INR Sodium Potassium Chloride Carbon Dioxide Anion Gap BUN Creatinine Estimated GFR (MDRD) Glucose Calcium Total Bilirubin AST ALT Alkaline Phosphatase Troponin I High Sens 5.0 Total Protein Albumin Globulin Albumin/Globulin Ratio Lipase TSH 1.01 Urine Color YELLOW Urine Clarity CLEAR Urine pH 6.0 Ur Specific [place] 1.010 Urine Protein NEGATIVE Urine Glucose (UA) NEGATIVE Urine Ketones NEGATIVE Urine Occult Blood NEGATIVE Urine Nitrite NEGATIVE Urine Bilirubin NEGATIVE Urine Urobilinogen 0.2 (NORMAL) Ur Leukocyte Esterase NEGATIVE Ur Microscopic Review NOT INDICATED Urine Culture Comments NOT INDICATED Urine Opiates Screen NEGATIVE Ur Oxycodone Screen NEGATIVE Urine Methadone Screen NEGATIVE Ur Propoxyphene Screen NEGATIVE Ur Barbiturates Screen NEGATIVE Ur Tricyclics Screen NEGATIVE Ur Phencyclidine Scrn NEGATIVE Ur Amphetamine Screen NEGATIVE U Methamphetamines Scrn NEGATIVE U Benzodiazepines Scrn NEGATIVE Urine Cocaine Screen NEGATIVE U Cannabinoids Screen POSITIVE H Ethyl Alcohol - Rads (name of study) CT head WO Radiology: Other (No acute intracranial abnormality) PD MEDICAL DECISION MAKING - ED course Complexity details: considered differential (Stroke, TIA, seizure, intoxication, conversion disorder) ED course: On arrival pt has speech changes and left arm weakness that do appear volitional as they are intermittent and when distracted her movement appears normal. However, given her strange presentation CT head was obtained showing no acute abnormality. Patient was reevaluated at 16:30, her strength and speech are improving. Additionally she was noted to get out of bed and walk without issue, but then when back in bed she endorsed continue leg weakness. She continues to have some voluntary appearing weakness in her left arm, but then when I do dysmetria testing she again has full strength in the arm and can hold it up for greater than 15 seconds without any drift whatsoever. At times she makes ataxic wavy movements with her arm and head, but other times she is still and she has no actual dysmetria and is she is able to hit the target of my finger without issue. Her speech at times is halting, but her pronunciation is normal and she will intermittently speak fluently in sentences without any issue whatsoever. I discussed with her that I do not think this is a stroke, and that her exam is very inconsistent and appears volitional and I would like her to give her best effort so that we do not do extraneous or agressive tests. She became somewhat frustrated upon hearing this and began talking fluently with absolutely no dysarthria or dysphasia. Her strength exam became normal. Labs show elevated ethanol level, otherwise unremarkable. On repeat evaluation at 1800 patient is speaking fluently in full sentences, has full strength, has no residual symptoms. She wants to go home and she thinks that this was caused by anxiety or stress. She thinks that multiple factors in life her blood to her stress level increasing and probably manifested in this way. She denies SI and is clinically sober. I agree that this appears to be a stress reaction and I do not think it was a TIA, seizure, stroke - it appeared very volitional. I discussed avoidance of alcohol, drugs. I also discussed close PCP follow up and return precautions and patient was discharged. She continues to have a normal neuro exam on discharge. Departure - Departure Disposition: 01 Home, Self Care Clinical Impression: Stress reaction Condition: Good Instructions: ED Stress React Follow-Up: Your,PCP [Other] - Within 1 week Comments: It is not clear what caused your symptoms today, but stress likely played a role. Your labs are reassuring, and your CT scan did not show signs of an obvious abnormality. If you are developing worsening or new concerning symptoms such as increasing chest pain, trouble breathing, weakness/numbness, return to the emergency department. Please follow with your primary care provider as soon as possible. Avoid drinking alcohol and any drug use, as these can lead to worsen your symptoms. Discharge Date/Time: 03/26/19 18:30
--- NOTE | 2019-03-26 15:54 | CT Report ---
Reason: Inconsistent L side weakness and speech change Procedure Date: 03/26/2019 Accession Number: [id number] / [id number] Procedure: CT - Head W/O Stroke Protocol CPT Code: Final Report FULL RESULT: EXAM: CT HEAD EXAM DATE: 03/26/2019 03:41 PM. CLINICAL HISTORY: Inconsistent L side weakness and speech change. COMPARISON: HEAD W/O 10/12/2018 5:16 AM. TECHNIQUE: Multiaxial CT images were obtained from the foramen magnum to the vertex. Reformats: Sagittal and coronal. IV contrast: None. In accordance with CT protocol optimization, one or more of the following dose reduction techniques were utilized for this exam: automated exposure control, adjustment of mA and/or KV based on patient size, or use of iterative reconstructive technique. FINDINGS: Parenchyma: No intraparenchymal hemorrhage. No evidence of mass, midline shift, or CT findings of acute infarction. Sher-white differentiation is distinct. Extraaxial Spaces: Normal for age. No subdural or epidural collections identified. Ventricles: Normal in size and position. Sinuses and Orbits: Imaged paranasal sinuses, orbits, and mastoids show no significant abnormality. Bones: No evidence of fracture or calvarial defect. Other: None. IMPRESSION: No intracranial hemorrhage. ASPECT score 10 out of 10. RADIA The above critical test findings were discussed with Francis Nicole by Dr. Rodri Colón at 03:52 PM on 03/26/2019.
[2019-03-26 16:20] LABS: BASOPHILS # (AUTO) 0.1 10^3/uL (0.0-0.1); BASOPHILS % (AUTO) 0.8 %; EOSINOPHILS # (AUTO) 0.2 10^3/uL (0.0-0.7); EOSINOPHILS % (AUTO) 1.8 %; HGB - HEMOGLOBIN 13.6 g/dL (12.0-16.0); LYMPHOCYTES # (AUTO) 3.6 10^3/uL (1.5-3.5); LYMPHOCYTES % (AUTO) 40.2 %; MEAN CORPUSCULAR HEMOGLOBIN 29.3 pg (27.0-31.0); MEAN CORPUSCULAR HGB CONC 32.5 g/dL (32.0-36.0); MEAN CORPUSCULAR VOLUME 90.1 fL (81.0-99.0); MEAN PLATELET VOLUME 9.2 fL (7.9-10.8); MONOCYTES # (AUTO) 0.7 10^3/uL (0.0-1.0); MONOCYTES % (AUTO) 7.3 %; NEUTROPHILS # (AUTO) 4.3 10^3/uL (1.5-6.6); NEUTROPHILS % (AUTO) 48.7 %; PLT - PLATELET COUNT 346 10^3/uL (130-450); RED BLOOD COUNT 4.64 10^6/uL (4.20-5.40); RED CELL DISTRIBUTION WIDTH 15.2 % (12.0-15.0); WHITE BLOOD COUNT 8.9 x10^3/uL (4.8-10.8)
--- NOTE | 2019-03-26 16:20 | XRAY Report ---
Reason: chest pain Procedure Date: 03/26/2019 Accession Number: [id number] / [id number] Procedure: XR - Chest 1 View X-Ray CPT Code: 49673 Final Report FULL RESULT: EXAM: CHEST RADIOGRAPHY EXAM DATE: 03/26/2019 03:50 PM. CLINICAL HISTORY: Chest pain. COMPARISON: CHEST 2 VIEW PA/LAT 05/04/2017 3:06 AM. TECHNIQUE: 1 view. FINDINGS: Lungs/Pleura: Mild interstitial prominence with some peribronchial cuffing. No localized infiltrate, consolidation, effusion, or pneumothorax. Mediastinum: Within exam limitations, the cardiomediastinal contour is normal. Other: None. IMPRESSION: Mild interstitial prominence, possible bronchitis or early edema. RADIA
[2019-03-26 16:27] LABS: MUDS CUTOFF CONCENTRATIONS CUTOFF CONC BELOW:
[2019-03-26 16:29] LABS: BILIRUBIN,URINE NEGATIVE (NEGATIVE); GLUCOSE, URINE (UA) NEGATIVE (NEGATIVE); KETONES,URINE (UA) NEGATIVE (NEGATIVE); LEUKOCYTE ESTERASE, URINE NEGATIVE (NEGATIVE); NITRITE,URINE NEGATIVE (NEGATIVE); OCCULT BLOOD,URINE NEGATIVE (NEGATIVE); PROTEIN,URINE NEGATIVE (NEGATIVE); UROBILINOGEN,URINE 0.2 (NORMAL) E.U./dL (NORMAL)
[2019-03-26 16:32] LABS: INR 0.9 (0.8-1.2); PT - PROTHROMBIN TIME 10.5 secs (9.9-12.6)
[2019-03-26 16:36] LABS: CLARITY,URINE CLEAR (CLEAR)
[2019-03-26 16:37] LABS: ALBUMIN/GLOBULIN RATIO 1.1 (1.0-2.2); BILIRUBIN,TOTAL 0.3 mg/dL (0.2-1.0); CALCIUM 8.8 mg/dL (8.5-10.3); CREATININE 0.5 mg/dL (0.4-1.0); TOTAL PROTEIN 7.6 g/dL (6.7-8.2)
[2019-03-26 16:41] LABS: AMPHETAMINE SCREEN,URINE NEGATIVE (NEGATIVE); BENZODIAZEPINES SCREEN, URINE NEGATIVE (NEGATIVE); COCAINE SCREEN URINE NEGATIVE (NEGATIVE); METHADONE SCREEN, URINE NEGATIVE (NEGATIVE); METHAMPHETAMINES SCREEN, URINE NEGATIVE (NEGATIVE); OPIATE SCREEN, URINE NEGATIVE (NEGATIVE); OXYCODONE SCREEN, URINE NEGATIVE (NEGATIVE); PROPOXYPHENE SCREEN, URINE NEGATIVE (NEGATIVE); TRICYCLIC ANTIDEPRESSANT,URINE NEGATIVE (NEGATIVE)
[2019-03-26] MEDS ORDERED: ALBUTEROL NEB 2.5 MG/3 ML INH STA (17:07)
[2019-03-26] MEDS ORDERED: ACETAMINOPHEN 325 MG TABLET PO STA (17:07)
[2019-03-26 17:43] VITALS: BP 130/79
== END 2019-03-26 18:30 | disposition home or self-care (01) ==
LOC: EDUNIT# → EDBD → ED 15:20
DX: F43.9 Reaction to severe stress, unspecified (principal); R00.0 Tachycardia, unspecified; Z86.73 Personal history of transient ischemic attack (TIA), and cerebral infarction without residual deficits; I10 Essential (primary) hypertension; E11.9 Type 2 diabetes mellitus without complications; F17.200 Nicotine dependence, unspecified, uncomplicated
CPT/HCPCS: 36415; 70450; 71045; 80053; 81003; 83690; 84443; 84484; 85025; 85610; 93005; 94640; 99283; 99284; A9270; 80306; 80320; 81001; 87086

== ENCOUNTER 2019-04-21 15:42 | Outpatient (CLI) | payer MEDICARE, MEDICAID | END 2019-04-21 15:43 | disposition critical access hospital (66) | LOC: EMS 15:42 | PROVIDERS: ATTEND Surgery | DX: R00.0 Tachycardia, unspecified (principal); R07.9 Chest pain, unspecified | CPT/HCPCS: A0425; A0427 ==

== ENCOUNTER 2019-04-21 16:04 | Emergency (ER) | payer MEDICARE, MEDICAID ==
[2019-04-21] MEDS ORDERED: MAG HYDROX/AL HYDROX/SIMETH 30 ML UDC PO STA (16:25)
[2019-04-21] MEDS ORDERED: SUCRALFATE 1 GM/10 ML UDC PO STA (16:25)
[2019-04-21] MEDS ORDERED: LORazepam 2 MG/ML VIAL IVP STA (16:25)
--- NOTE | 2019-04-21 16:27 | ED Physician Documentation ---
PD HPI CHEST PAIN - Stated complaint Stated Complaint: CP - Chief complaint Chief Complaint: Cardiac - History obtained from History obtained from: Patient - History of Present Illness Timing - onset: How many hours ago (11) Timing - onset during: Rest Timing - duration: Hours (11) Timing - details: Still present, Constant Pain level max: 6 Pain level now: 6 Quality: Pressure Location: Substernal Radiation: No: Jaw, Neck, Back, Abdominal, Left upper extremity, Right upper extremity Improved by: Nothing. No: Rest, Oxygen, Nitro, ASA, Antacids, Other medication Worsened by: No: Exertion, Inspiration, Eating, Movement, Palpation, Position Associated symptoms: Nausea, Feeling faint / dizzy (occasional) - Additional information Additional information: Patient states that she is normally an alcoholic. She has had decreased alcohol intake over the past 2 to 3 days. She states that it was a pressure and burning type sensation in her chest. No changes with nitroglycerin with EMS. Aspirin was given prior to arrival as well. Review of Systems Constitutional: denies: Fever Ears: denies: Ear pain Nose: denies: Rhinorrhea / runny nose, Congestion Throat: denies: Sore throat Cardiac: denies: Palpitations Respiratory: denies: Dyspnea, Hemoptysis, Wheezing GI: denies: Vomiting, Diarrhea Skin: denies: Rash Musculoskeletal: denies: Neck pain, Back pain Neurologic: denies: Headache PD PAST MEDICAL HISTORY - Past Medical History Cardiovascular: Hypertension, High cholesterol Respiratory: Asthma, COPD, Pneumonia Neuro: None Endocrine/Autoimmune: Type 2 diabetes GI: GERD HEENT: None Psych: Depression, Anxiety Musculoskeletal: Osteoarthritis, Fibromyalgia - Past Surgical History Past Surgical History: Yes General: Appendectomy Ortho: Arthroscopic surgery /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 ELECTRONIC: Hysterectomy - Present Medications Home Medications: Ambulatory Orders Medication Instructions Recorded Confirmed Alprazolam [Xanax] 2 mg PO BID PRN 11/20/12 05/04/17 Omeprazole 20 mg PO BID PRN 11/20/12 05/04/17 Zolpidem Tartrate [Ambien] 10 mg PO QPM PRN 06/25/13 05/04/17 Atorvastatin Calcium 20 mg PO DAILY 06/15/15 05/04/17 Ibuprofen 200 mg PO QID PRN 06/15/15 05/04/17 Lisinopril 10 mg PO DAILY 06/15/15 05/04/17 Loperamide [Imodium] 2 mg PO QID PRN 06/15/15 05/04/17 Prazosin HCl 1 mg PO QPM 06/15/15 05/04/17 carvediloL [Carvedilol] 3.125 mg PO BID 06/15/15 05/04/17 FLUoxetine [PROzac] 03/26/18 03/26/18 Gabapentin 0 03/26/18 03/26/18 Isosorbide Mononitrate 03/26/18 Ibuprofen [Motrin] 800 mg PO Q8H PRN #30 tablet 11/23/18 Oxycodone HCl/Acetaminophen 1 - 2 each PO Q6H PRN #14 tablet 11/23/18 [Percocet 5-325 mg Tablet] Famotidine [Pepcid] 20 mg PO BID #60 tablet 04/21/19 Sucralfate [Carafate] 1 gm PO ACHS #60 tablet 04/21/19 - Allergies Allergies/Adverse Reactions: Allergies Allergy/AdvReac Type Severity Reaction Status Date / Time morphine Allergy Intermediate Itching Verified 09/13/17 06:06 metformin AdvReac Intermediate violently Verified 03/26/18 15:00 ill adhesive tape Allergy Intermediate Rash Uncoded 05/04/17 02:32 - Social History Does the pt smoke?: Yes Smoking Status: Current every day smoker Does the pt drink ETOH?: Yes Does the pt have substance abuse?: No - Immunizations Immunizations are current?: Yes - POLST Patient has POLST: No PD ED PE NORMAL - Vitals Vital signs reviewed: Yes - General General: Alert and oriented X 3, No acute distress, Well developed/nourished, Other (appears anxious) - HEENT HEENT: PERRL, Moist mucous membranes - Neck Neck: Supple, no meningeal sign - Cardiac Cardiac: RRR, Strong equal pulses - Respiratory Respiratory: No respiratory distress, Clear bilaterally - Abdomen Abdomen: Soft, Non tender, Non distended - Derm Derm: Warm and dry, No rash - Extremities Extremities: No edema - Neuro Neuro: Alert and oriented X 3 - Psych Psych: Normal mood, Normal affect Results - Vitals Vitals: Vital Signs - 24 hr 04/21/19 04/21/19 04/21/19 16:06 16:58 17:30 Temperature 36.9 C Heart Rate 109 H 91 90 Respiratory 18 18 18 Rate Blood Pressure 142/111 H 106/94 H 119/91 H O2 Saturation 99 99 94 Oxygen O2 Source Room air - EKG (time done) 1608 Rate: Rate (enter#) (99) Rhythm: NSR [place]: Normal Intervals: Normal [place] QRS: Normal Ischemia: Normal ST segments - Labs Labs: Laboratory Tests 04/21/19 04/21/19 04/21/19 16:15 16:15 16:15 WBC 9.5 RBC 4.72 Hgb 13.8 Hct 42.0 MCV 89.0 MCH 29.2 MCHC 32.9 RDW 13.8 Plt Count 376 MPV 9.6 Neut # (Auto) 4.2 Lymph # (Auto) 4.2 H [place] # (Auto) 0.7 Eos # (Auto) 0.2 Baso # (Auto) 0.1 Absolute Nucleated RBC 0.00 Nucleated RBC % 0.0 Sodium 137 Potassium 3.7 Chloride 102 Carbon Dioxide 22 Anion Gap 13.0 BUN 14 Creatinine 0.8 Estimated GFR (MDRD) 76 L Glucose 164 H Calcium 9.8 Total Bilirubin 0.4 AST 26 ALT 28 Alkaline Phosphatase 86 Troponin I High Sens 3.8 Total Protein 8.0 Albumin 4.0 Globulin 4.0 Albumin/Globulin Ratio 1.0 Lipase 51 - Rads (name of study) cxr Radiology: Prelim report reviewed, EMP read contemporaneously, See rad report (Normal single view chest. ) PD MEDICAL DECISION MAKING - ED course Complexity details: reviewed results, re-evaluated patient, considered differential (No ST elevation [place], no aortic dissection, no PE, no tension pneumothorax, no aortic aneurysm), d/w patient ED course: Patient presents the emergency department with atypical chest pain. Appears to be esophagitis. Feels much better after a dose of Ativan and GI cocktail. We will place on medications for esophagitis for home. She is well-appearing, nontoxic. Afebrile. No evidence of acute coronary syndrome. Patient counseled regarding signs and symptoms for which I believe and urgent re-evaluation would be necessary. Patient with good understanding of and agreement to plan and is comfortable going home at this time This document was made in part using voice recognition software. While efforts are made to proofread this document, sound alike and grammatical errors may occur. Departure - Departure Disposition: 01 Home, Self Care Clinical Impression: Chest pain Qualifiers: Chest pain type: unspecified Qualified Code(s): R07.9 - Chest pain, unspecified Condition: Good Instructions: ED Chest Pain Atypical Unkn Cause Follow-Up: your,doctor in 1 week [Other] Prescriptions: Famotidine [Pepcid] 20 mg PO BID #60 tablet Sucralfate [Carafate] 1 gm PO ACHS #60 tablet Comments: Use the medications as prescribed. Return if you worsen. Follow-up with your doctor for further care. Her testing is normal tonight. Discharge Date/Time: 04/21/19 17:43
[2019-04-21 16:32] LABS: BASOPHILS # (AUTO) 0.1 10^3/uL (0.0-0.1); BASOPHILS % (AUTO) 0.7 %; EOSINOPHILS # (AUTO) 0.2 10^3/uL (0.0-0.7); EOSINOPHILS % (AUTO) 2.3 %; HGB - HEMOGLOBIN 13.8 g/dL (12.0-16.0); LYMPHOCYTES # (AUTO) 4.2 10^3/uL (1.5-3.5); LYMPHOCYTES % (AUTO) 43.9 %; MEAN CORPUSCULAR HEMOGLOBIN 29.2 pg (27.0-31.0); MEAN CORPUSCULAR HGB CONC 32.9 g/dL (32.0-36.0); MEAN PLATELET VOLUME 9.6 fL (7.9-10.8); MONOCYTES # (AUTO) 0.7 10^3/uL (0.0-1.0); MONOCYTES % (AUTO) 7.8 %; NEUTROPHILS # (AUTO) 4.2 10^3/uL (1.5-6.6); PLT - PLATELET COUNT 376 10^3/uL (130-450); RED BLOOD COUNT 4.72 10^6/uL (4.20-5.40); RED CELL DISTRIBUTION WIDTH 13.8 % (12.0-15.0); WHITE BLOOD COUNT 9.5 x10^3/uL (4.8-10.8)
[2019-04-21] MEDS ORDERED: MAG HYDROX/AL HYDROX/SIMETH 30 ML UDC ONE (16:39)
[2019-04-21 16:53] LABS: BILIRUBIN,TOTAL 0.4 mg/dL (0.2-1.0); CALCIUM 9.8 mg/dL (8.5-10.3); CREATININE 0.8 mg/dL (0.4-1.0)
--- NOTE | 2019-04-21 17:06 | XRAY Report ---
Reason: Chest Pain Procedure Date: 04/21/2019 Accession Number: [id number] / [id number] Procedure: XR - Chest 1 View X-Ray CPT Code: 25286 Final Report FULL RESULT: EXAM: CHEST RADIOGRAPHY EXAM DATE: 04/21/2019 04:42 PM. CLINICAL HISTORY: Chest Pain. COMPARISON: CHEST 1 VIEW 03/26/2019 3:35 PM. TECHNIQUE: Upright AP view. FINDINGS: Lungs/Pleura: No focal opacities evident. No interstitial abnormality or pulmonary vascular congestion. No pleural effusion. No pneumothorax. Mediastinum: Within exam limitations, the cardiomediastinal contour is normal. Other: None. IMPRESSION: Normal single view chest. RADIA
[2019-04-21] MEDS ORDERED: KETOROLAC 30 MG/ML VIAL IVP STA (17:23)
[2019-04-21] MEDS ORDERED: PANTOPRAZOLE 40 MG VIAL IVP STA (17:23)
[2019-04-21 17:31] VITALS: BP 119/91
== END 2019-04-21 17:43 | disposition home or self-care (01) ==
LOC: EDUNIT# → ED 16:04
DX: K21.0 Gastro-esophageal reflux disease with esophagitis (principal); I10 Essential (primary) hypertension; E11.9 Type 2 diabetes mellitus without complications; F17.200 Nicotine dependence, unspecified, uncomplicated
CPT/HCPCS: 36415; 71045; 80053; 83690; 84484; 85025; 93005; 99283; 99284; A9270; J2060

== ENCOUNTER 2019-11-23 12:46 | Outpatient (CLI) | payer MEDICARE, MEDICAID ==
[2019-11-23 13:44] VITALS: BP 120/82
--- NOTE | 2019-11-23 13:44 | SLEEP CARE CONSULTATION ---
Information from patient questionnaire entered by Irene Wylie. I have reviewed and concur with the information entered by Irene Wylie. This document represents the service I personally performed and the decisions made by me, Madyson Guido ARNP. History of Present Illness Service Date and Time: 11/23/2019 1246 Reason for Visit: New patient Chief Complaint: reports: Unrefreshed sleep, Snoring, Observed pauses in breathing, Fatigue, Frequent awakenings at night, Other (sleep apnea; takes benadryl to sleep at night). denies: Insomnia, Excessive daytime sleepiness Duration of Symptoms: years Usual bedtime: 11pm - 1am Time it takes to fall asleep: 20 min Snores at night: Yes Observed to quit breathing while asleep: Yes Sleeps alone due to snoring: No (no partner) Number of times waking at night: 2-3 Reasons for waking at night: reports: Choking, Snoring, Gasping for air, Pain, Bathroom Toss, Turn, or Twitch while sleeping: Yes Recalls having dreams: No Usually gets out of bed at: 7-9 am Feels refreshed in the morning: No Morning headache: Yes (sometimes; once a week, gone in couple hours with tylenol) Sleepy or fatigued during the day: Yes Ever fallen asleep while driving: No Takes day naps: No Dreams during day naps: No Prior sleep studies: Yes Year and Where: 2010 - [facility] Additional HPI information: After previous study with an AHI of 142, she went through surgery removing tonsils, uvula, adenoids and part of soft palate. She states they split the back of her tongue, widened her throat and did a rhinoplasty. She gets very claustrophobic in general and with CPAP and has not been using one since surgery, but she states she also did not follow up with the sleep center after recovering from surgery. - Parasomnia Symptoms Ever been unable to move upon waking from sleep: No (only once) Walks in sleep: No Talks in sleep: Yes Ever acted out dreams in sleep: No (Used to get vivid dreams with Ambien) Ever felt weak in the knees when startled or emotional: Yes Bothered by creepy, crawly, restless sensations in legs: Yes (sometimes, they twitch) Problems with memory or concentration: Yes (more short term memory and feels con stantly in a "haze") Subjective Initial [place] Sleepiness Scale score: 11 (in 2011) Current [place] Sleepiness Scale score: 8 Past Medical History Past Medical History: reports: Dysphagia (has history of difficulty with swallowing pills, especially after surgery), Claustrophobia, Congestive Heart Failure, Diabetes (well controlled, A1c 6.5), Stroke (TIAs), Arthritis, Arrythmia (tachycardia), Fibromyalgia, Anxiety, Asthma, Emphysema, GERD, Other (spinalstenosis). denies: Hypertension, Hypothyroidism, Depression, Mood disorder Social History The patient's occupation is not employed, disabled. Patient is and lives in [place]. Have you smoked in the past 12 months: Yes Cigarettes per day (20/pack): 20 Years of smokin Smoking Pack Years: 35.0 Alcohol use: Yes Alcohol amount and frequency: 2-3 drinks, 2-3 times a week Caffeine use: No Family History Family history of sleep disordered breathing: Yes (parents) Family Hx Sleep Apnea: Mother: Snoring, Father: Snoring Allergies and Home Medications Drug allergies reviewed: Yes (metformin, adhesive tape) Home medication list reviewed: Yes (tizanidine, pantoprazole, victoza; prn tylenol, benadryl and melatonin) Review of Systems Weight loss over past 5 years: 50 Cardiovascular: reports: high blood pressure. denies: palpitations, chest pain, irregular heart rate or pulse, leg or foot swelling, have to sleep sitting up Respiratory: reports: shortness of breath, wheeze, sputum production, other (smokers cough). denies: chronic cough Gastrointestinal: reports: heartburn, difficulty swallowing, nausea, diarrhea Urinary: reports: urgency Neurological: reports: headaches (occasional). denies: seizure, head trauma, disorientation, speech dysfunction, gait or balance problems Psychiatric: reports: anxiety, claustrophobia. denies: mood disorder Ear/Nose/Throat: reports: nasal congestion, sinus problems, dry mouth/throat (constantly due to diabetes), hoarseness, injury to nose (several times had her nose broken), tonsillectomy, wisdom teeth removed Endocrine: reports: sluggishness, excessive thirst. denies: thyroid disease, too hot or cold, increased appetite Musculoskeletal: reports: joint pain, neck pain, back pain, muscle pain or cramping, mobility problems Immunologic: reports: sneezing, allergies to food or environment (started couple years ago; seasonal) Physical Exam Blood Pressure: 120/82 Cuff size: long Heart Rate: 97 O2 Saturation: 97 Height: 5 ft 5 in Weight: 197 lb Body Mass Index: 32.8 BMI Classification: Obese Neck circumference: 16 (inches) HEENT: No craniofacial malformation Nostrils: patent to airflow Turbinates: normal Septum: midline Mouth and throat: normal Soft palate: normal Hard palate: normal Uvula visualization: 100% Mallampati Class I Tongue: normal in size Tonsils: absent bilaterally Chin and jaw: normal size and position Neck: normal w/o lymphadenopathy or thyromegaly Heart: regular rate and rhythm Lungs: clear bilaterally Impression and Plan 1. Obstructive Sleep Apnea-Hypopnea Syndrome, as previously diagnosed. She had a UPPP with removal of adenoids, widening of throat, tongue reduction and rhinoplasty. She states after recovering from surgery, she did not follow up with the sleep center. She is very claustrophobic and is concerned about use of a CPAP and her anxiety surrounding this. She is wanting to discuss other options such as Inspire therapy. She continues to have loud and irregular snoring, observed cessation of breath while asleep, gasping or choking in sleep, morning headaches occasionally, frequent awakening during the night, unrefreshed sleep, cognitive impairment/memory problems, and excessive daytime sleepiness. I recommend proceeding to polysomnography to confirm the diagnosis and to assess current severity. If the patient has significant sleep disordered breathing. I informed the patient of what the sleep studies involve and after some discussion, obtained agreement to proceed. The pathophysiology of obstructive sleep apnea-hypopnea syndrome was discussed with the patient and health risks of cardiovascular and cerebrovascular disease if not treated. Risks of drowsy driving discussed in detail and patient advised to avoid long distance driving and to green chain puller at the first sign of drowsiness. Patient agreed to plan. * Schedule polysomnography and return in 1-2 weeks after the study to discuss result and initiate therapy. * Avoid long distance driving or driving when feeling sleepy. * Avoid alcohol, sedative and muscle relaxant around bedtime. * Continue to lose weight. * Review instructions provided by trained office staff on how to prepare for the sleep study. * Return for follow-up after sleep study completed. Time Spent with Patient (minutes): 30
== END 2019-11-23 12:47 | disposition home or self-care (01) ==
LOC: SC 12:46
PROVIDERS: ATTEND Nurse Practitioner Family
DX: G47.33 Obstructive sleep apnea (adult) (pediatric) (principal); E66.9 Obesity, unspecified; Z68.32 Body mass index [BMI] 32.0-32.9, adult; F17.210 Nicotine dependence, cigarettes, uncomplicated
CPT/HCPCS: 99204; G0463; 99212

== ENCOUNTER 2020-05-25 16:51 | Outpatient (CLI) | payer MEDICARE, MEDICAID | END 2020-05-25 16:52 | disposition home or self-care (01) | LOC: COV 16:51 | PROVIDERS: ATTEND Family Medicine | DX: R50.9 Fever, unspecified (principal); R05 Cough; R06.02 Shortness of breath; M79.10 Myalgia, unspecified site; R53.83 Other fatigue; R07.0 Pain in throat; R19.7 Diarrhea, unspecified; R09.81 Nasal congestion; J34.89 Other specified disorders of nose and nasal sinuses; R11.2 Nausea with vomiting, unspecified; Z20.822 Contact with and (suspected) exposure to COVID-19 ==

== ENCOUNTER 2021-06-21 16:46 | Emergency (ER) | payer MEDICARE, MEDICAID ==
--- NOTE | 2021-06-21 17:18 | XRAY Report ---
PROCEDURE: Chest 1 View X-Ray INDICATIONS: Chest pain TECHNIQUE: One view of the chest was acquired. COMPARISON: 04/21/2019, 03/26/2019. FINDINGS: Surgical changes and devices: None. Lungs and pleura: No pleural effusions or pneumothorax. Lungs are clear. Mediastinum: Mediastinal contours appear normal. Heart size is normal. Bones and chest wall: No suspicious bony lesions. Overlying soft tissues appear unremarkable. IMPRESSION: No acute cardiopulmonary pathology. Reviewed by: Arya Dodge MD on 06/21/2021 5:17 PM PST Approved by: Arya Dodge MD on 06/21/2021 5:17 PM PST Station ID: [id number]
[2021-06-21] MEDS ORDERED: MAG HYDROX/AL HYDROX/SIMETH 30 ML UDC PO STA (17:41)
[2021-06-21] MEDS ORDERED: SUCRALFATE 1 GM/10 ML UDC PO STA (17:41)
[2021-06-21] MEDS ORDERED: FAMOTIDINE 20 MG TABLET PO STA (17:41)
--- NOTE | 2021-06-21 17:53 | ED Physician Documentation ---
History of Present Illness - Stated complaint Stated Complaint: CP/SOA/HEADACHE/NAUSEA - Chief complaint Chief Complaint: Cardiac - History obtained from History obtained from: Patient - History of Present Illness Timing: Today Pain level max: 6 Pain level now: 2 - Additonal information Additional information: Patient is a 50-year-old female who presents to the emergency department complaining of chest pain. She states it is sharp and stabbing, lasts for 1 to 2 seconds at a time then turns into a dull ache. Has been occurring throughout the day. Also complains of a burning sensation in her esophagus. . Does have a history of gastritis and GERD. She states that she has had a heart attack in the past as well but this feels different. She states that the pain is also worse when she palpates the chest, especially at the sternal border of the fifth rib. Better with lying still. Review of Systems Ten Systems: 10 systems reviewed and negative Constitutional: denies: Fever, Chills Respiratory: denies: Cough GI: denies: Abdominal Pain, Vomiting, Diarrhea Skin: denies: Rash Musculoskeletal: denies: Neck pain, Back pain Neurologic: denies: Headache PD PAST MEDICAL HISTORY - Past Medical History Cardiovascular: Hypertension, High cholesterol Respiratory: Asthma, COPD, Pneumonia Neuro: None Endocrine/Autoimmune: Type 2 diabetes GI: GERD HEENT: None Psych: Depression, Anxiety Musculoskeletal: Osteoarthritis, Fibromyalgia - Past Surgical History Past Surgical History: Yes General: Appendectomy 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 - Present Medications Home Medications: Ambulatory Orders Medication Instructions Recorded Confirmed Alprazolam [Xanax] 2 mg PO BID PRN 11/20/12 05/04/17 Omeprazole 20 mg PO BID PRN 11/20/12 05/04/17 Zolpidem Tartrate [Ambien] 10 mg PO QPM PRN 06/25/13 05/04/17 Atorvastatin Calcium 20 mg PO DAILY 06/15/15 05/04/17 Ibuprofen 200 mg PO QID PRN 06/15/15 05/04/17 Loperamide [Imodium] 2 mg PO QID PRN 06/15/15 05/04/17 Prazosin HCl 1 mg PO QPM 06/15/15 05/04/17 carvediloL [Carvedilol] 3.125 mg PO BID 06/15/15 05/04/17 lisinopriL [Lisinopril] 10 mg PO DAILY 06/15/15 05/04/17 FLUoxetine [PROzac] 03/26/18 03/26/18 Gabapentin 0 03/26/18 03/26/18 Isosorbide Mononitrate 03/26/18 Ibuprofen [Motrin] 800 mg PO Q8H PRN #30 tablet 11/23/18 Oxycodone HCl/Acetaminophen 1 - 2 each PO Q6H PRN #14 tablet 11/23/18 [Percocet 5-325 mg Tablet] Famotidine [Pepcid] 20 mg PO BID #60 tablet 04/21/19 Sucralfate [Carafate] 1 gm PO ACHS #60 tablet 04/21/19 HYDROcod/ACETAM 5/325 [[place] 5/325] 1 - 2 ea PO Q6H PRN #14 tablet 06/21/21 - Allergies Allergies/Adverse Reactions: Allergies Allergy/AdvReac Type Severity Reaction Status Date / Time morphine Allergy Intermediate Itching Verified 06/21/21 16:50 metformin AdvReac Intermediate violently Verified 06/21/21 16:50 ill adhesive tape Allergy Intermediate Rash Uncoded 06/21/21 16:50 - Social History Does the pt smoke?: Yes Smoking Status: Current every day smoker Does the pt drink ETOH?: Yes Does the pt have substance abuse?: No - Immunizations Immunizations are current?: Yes - POLST Patient has POLST: No PD ED PE NORMAL - Vitals Vital signs reviewed: Yes - General General: Alert and oriented X 3, No acute distress - HEENT HEENT: Moist mucous membranes - Neck Neck: Supple, no meningeal sign, No bony TTP - Cardiac Cardiac: RRR, Strong equal pulses - Respiratory Respiratory: No respiratory distress, Clear bilaterally, Other (TTP over the L sternal border 5th rib, reproduces her pain.) - Abdomen Abdomen: Soft, Non tender, Non distended - Back Back: No spinal TTP - Derm Derm: Warm and dry - Extremities Extremities: No edema - Neuro Neuro: Alert and oriented X 3, instructor modeling 2-12 intact, No motor deficit, No sensory deficit, Normal speech - Psych Psych: Normal mood, Normal affect Results - Vitals Vitals: Vital Signs - 24 hr 06/21/21 06/21/21 06/21/21 16:50 17:29 17:30 Temperature 36.5 C Heart Rate 118 H 104 H 99 Respiratory 20 15 15 Rate Blood Pressure 101/88 H 121/82 H 110/76 O2 Saturation 98 96 96 06/21/21 06/21/21 06/21/21 18:00 18:30 19:00 Temperature Heart Rate 95 91 88 Respiratory 13 13 11 L Rate Blood Pressure 114/71 116/73 114/73 O2 Saturation 97 98 98 Oxygen O2 Source Room air - EKG (time done) 1653 Rate: Rate (enter#) (106) Rhythm: Sinus tachycardia [place]: Normal Intervals: Normal [place] QRS: Normal Ischemia: Normal ST segments - Labs Labs: Laboratory Tests 06/21/21 06/21/21 06/21/21 18:30 18:30 18:30 WBC 10.4 RBC 4.88 Hgb 14.6 Hct 44.4 MCV 91.0 MCH 29.9 MCHC 32.9 RDW 13.8 Plt Count 322 MPV 9.3 Neut # (Auto) 5.6 Lymph # (Auto) 3.7 H [place] # (Auto) 0.8 Eos # (Auto) 0.1 Baso # (Auto) 0.1 Absolute Nucleated RBC 0.00 Nucleated RBC % 0.0 Sodium 137 Potassium 3.7 Chloride 99 L Carbon Dioxide 26 Anion Gap 12.0 BUN 13 Creatinine 0.6 Estimated GFR (MDRD) 105 Glucose 149 H Calcium 9.4 Phosphorus 3.9 Magnesium 1.9 Total Bilirubin 0.4 AST 23 ALT 31 Alkaline Phosphatase 85 Troponin I High Sens 4.3 Total Protein 7.8 Albumin 4.1 Globulin 3.7 Albumin/Globulin Ratio 1.1 Lipase 48 - Rads (name of study) cxr Radiology: Final report received, EMP read contemporaneously, See rad report (No acute cardiopulmonary pathology. ) PD MEDICAL DECISION MAKING - ED course Complexity details: reviewed results, re-evaluated patient, considered differential (No ST elevation [place], no aortic dissection, no PE, no tension pneumothorax, no aortic aneurysm), d/w patient ED course: No acute findings on chest x-ray, EKG or laboratory testing. Pain is reproducible with palpation of the costochondral cartilage of the left fifth rib at the sternal border. Likely costochondritis. We will place on pain medication for home and have her follow-up with her doctor for further care. Patient counseled regarding signs and symptoms for which I believe and urgent re-evaluation would be necessary. Patient with good understanding of and agreement to plan and is comfortable going home at this time This document was made in part using voice recognition software. While efforts are made to proofread this document, sound alike and grammatical errors may occur. Departure - Departure Disposition: 01 Home, Self Care Clinical Impression: Chest pain Qualifiers: Chest pain type: unspecified Qualified Code(s): R07.9 - Chest pain, unspecified Condition: Good Instructions: ED Chest Pain Atypical Unkn Cause Follow-Up: Berenice Sharpe PA [Primary Care Provider] - Within 1 week Prescriptions: HYDROcod/ACETAM 5/325 [[place] 5/325] 1 - 2 ea PO Q6H PRN #14 tablet PRN Reason: Pain Comments: Please follow-up with your doctor for further care. Return if you worsen. Your testing is normal today. Your prescriptions were sent to [facility] in [place]. You can also utilize Motrin or Aleve. I am prescribing a short course of narcotic pain medication for you. These are potentially dangerous and addictive medications that should be used carefully. These medications may constipate you. Take an [id number] stool softener (docusate) twice daily with plenty of water while taking these medications. If you go 24 hours without a bowel movement, take [id number] miralax, per package instructions. Do not drink or drive while taking these medications. If you received narcotic or sedating medications while in the emergency department, do not drive for 24 hours. Store this medication in a safe, secure place and out of reach of children. It is a violation of federal law to give or sell this medication to another person or to use in a manner other than prescribed. The ED will not refill narcotic prescriptions, including prescriptions lost or stolen. To dispose of unwanted medications: 1. [facility] [address] in [place] has a medication drop box. They accept prescription medications (in pill form) Friday through Friday 9:00 a.m. to 5:00 p.m. 2. [facility] accepts prescription medications (in pill form only) for disposal year round. Call for more information. 3. Contact the [facility] for the next [facility] sponsored prescription drug collection event. , [phone], or [phone]; Discharge Date/Time: 06/21/21 19:15
[2021-06-21 18:40] LABS: BASOPHILS # (AUTO) 0.1 10^3/uL (0.0-0.1); BASOPHILS % (AUTO) 0.6 %; EOSINOPHILS # (AUTO) 0.1 10^3/uL (0.0-0.7); EOSINOPHILS % (AUTO) 1.2 %; HCT - HEMATOCRIT 44.4 % (37.0-47.0); HGB - HEMOGLOBIN 14.6 g/dL (12.0-16.0); LYMPHOCYTES # (AUTO) 3.7 10^3/uL (1.5-3.5); LYMPHOCYTES % (AUTO) 35.3 %; MEAN CORPUSCULAR HEMOGLOBIN 29.9 pg (27.0-31.0); MEAN CORPUSCULAR HGB CONC 32.9 g/dL (32.0-36.0); MEAN PLATELET VOLUME 9.3 fL (7.9-10.8); MONOCYTES # (AUTO) 0.8 10^3/uL (0.0-1.0); MONOCYTES % (AUTO) 7.9 %; NEUTROPHILS # (AUTO) 5.6 10^3/uL (1.5-6.6); NEUTROPHILS % (AUTO) 53.7 %; PLT - PLATELET COUNT 322 10^3/uL (130-450); RED BLOOD COUNT 4.88 10^6/uL (4.20-5.40); RED CELL DISTRIBUTION WIDTH 13.8 % (12.0-15.0); WHITE BLOOD COUNT 10.4 x10^3/uL (4.8-10.8)
[2021-06-21 18:55] LABS: ALBUMIN 4.1 g/dL (3.2-5.5); ALBUMIN/GLOBULIN RATIO 1.1 (1.0-2.2); BILIRUBIN,TOTAL 0.4 mg/dL (0.2-1.0); CALCIUM 9.4 mg/dL (8.5-10.3); CREATININE 0.6 mg/dL (0.4-1.0); MAGNESIUM 1.9 mg/dL (1.7-2.8); PHOSPHORUS 3.9 mg/dL (2.5-4.6); POTASSIUM 3.7 mmol/L (3.5-5.0); TOTAL PROTEIN 7.8 g/dL (6.7-8.2)
[2021-06-21 19:06] VITALS: BP 114/73
== END 2021-06-21 19:15 | disposition home or self-care (01) ==
LOC: ED 16:46
DX: R07.89 Other chest pain (principal); I10 Essential (primary) hypertension; E11.9 Type 2 diabetes mellitus without complications; F17.200 Nicotine dependence, unspecified, uncomplicated
CPT/HCPCS: 36415; 71045; 80053; 83690; 83735; 84100; 84484; 85025; 93005; 99284; A9270

== ENCOUNTER 2022-03-10 17:27 | Emergency (ER) | payer MEDICARE, MEDICAID ==
--- NOTE | 2022-03-10 17:58 | XRAY Report ---
PROCEDURE: Chest 1 View X-Ray INDICATIONS: Chest Pain TECHNIQUE: One view of the chest was acquired. COMPARISON: 06/21/2021 FINDINGS: Surgical changes and devices: None. Lungs and pleura: No pleural effusions or pneumothorax. Lungs are clear. Mediastinum: Mediastinal contours appear normal. Heart size is normal. Bones and chest wall: No suspicious bony lesions. Age-appropriate degenerative changes are seen. O verlying soft tissues appear unremarkable. IMPRESSION: Unremarkable single view chest. Reviewed by: Enrico Stokes MD on 03/10/2022 4:57 PM [facility] Approved by: Enrico Stokes MD on 03/10/2022 4:57 PM [facility] Station ID: [id number]
[2022-03-10 17:59] LABS: BASOPHILS # (AUTO) 0.1 10^3/uL (0.0-0.1); BASOPHILS % (AUTO) 0.6 %; EOSINOPHILS # (AUTO) 0.2 10^3/uL (0.0-0.7); EOSINOPHILS % (AUTO) 1.5 %; HCT - HEMATOCRIT 42.8 % (37.0-47.0); HGB - HEMOGLOBIN 14.2 g/dL (12.0-16.0); LYMPHOCYTES # (AUTO) 4.4 10^3/uL (1.5-3.5); LYMPHOCYTES % (AUTO) 43.5 %; MEAN CORPUSCULAR HEMOGLOBIN 30.6 pg (27.0-31.0); MEAN CORPUSCULAR HGB CONC 33.2 g/dL (32.0-36.0); MEAN CORPUSCULAR VOLUME 92.2 fL (81.0-99.0); MEAN PLATELET VOLUME 8.9 fL (7.9-10.8); MONOCYTES # (AUTO) 0.8 10^3/uL (0.0-1.0); MONOCYTES % (AUTO) 7.6 %; NEUTROPHILS # (AUTO) 4.6 10^3/uL (1.5-6.6); NEUTROPHILS % (AUTO) 45.7 %; PLT - PLATELET COUNT 345 10^3/uL (130-450); RED BLOOD COUNT 4.64 10^6/uL (4.20-5.40); RED CELL DISTRIBUTION WIDTH 13.5 % (12.0-15.0); WHITE BLOOD COUNT 10.1 x10^3/uL (4.8-10.8)
[2022-03-10 18:14] LABS: ALBUMIN 3.9 g/dL (3.2-5.5); BILIRUBIN,TOTAL 0.5 mg/dL (0.2-1.0); CALCIUM 9.6 mg/dL (8.5-10.3); CREATININE 0.8 mg/dL (0.4-1.0); POTASSIUM 3.8 mmol/L (3.5-5.0); TOTAL PROTEIN 7.7 g/dL (6.7-8.2)
--- OUTSIDE RECORDS SUMMARY | 2022-03-10 18:20 | EXTERNAL MEDICAL SUMMARY RPT | Continuity of Care Document ---
:1970 Author Organization [facility] Address [address] [place] [address] Phone Allergies No information. Encounters No information. Functional Status No information. Immunizations No information. Medications No information. Problems No information. Procedures No information. Results/Labs test date author facility value unit interpret ation Result panel 1 (unknown) (no (unknown) (unknown) (no value) (units (unk nown) date) unknown) (unknown) (no (unknown) (unknown) 01/08/22 (units (unkno wn) date) unknown) (unknown) (no (unknown) (unknown) [address] [place] [address] (units (unknown) date) unknown) (unknown) (no (unknown) (unknown) 15% of breast (units ( unknown) date) malignancies will unknown) not be visualized mammographically. In the (unknown) (no (unknown) (unknown) 5.4% and her 10 (units (unknown) date) year risk is unknown) 1.4%. According to the ACR, ACS, and NCCN (unknown) (no (unknown) (unknown) ACR BI-RADS (units (un known) date) Category 1: unknown) Negative 3341F (unknown) (no (unknown) (unknown) Accession (units (unkn own) date) Number: unknown) [id number] (unknown) (no (unknown) (unknown) Age/Sex: 51 / F (units (unknown) date) Date of Service: unknown) (unknown) (no (unknown) (unknown) [place], [place] (units ( unknown) date) [id number] unknown) (unknown) (no (unknown) (unknown) Approximately (units ( unknown) date) unknown) (unknown) (no (unknown) (unknown) BILATERAL (units (unkn own) date) DIGITAL SCREENING unknown) MAMMOGRAM 3D/2D WITH CAD: 01/08/2022 (unknown) (no (unknown) (unknown) Based on the (units (u nknown) date) Presley Martinzick unknown) model (a risk assessment model) the patient's (unknown) (no (unknown) (unknown) Both breasts are (units (unknown) date) almost entirely unknown) fatty (category a/<25% glandular tissue). (unknown) (no (unknown) (unknown) CLINICAL: (units (unkn own) date) Routine unknown) screening. Family history of breast cancer. (unknown) (no (unknown) (unknown) Comparison is (units ( unknown) date) made to exams unknown) dated: 09/05/2017 mammogram, 08/14/2016 mammogram, (unknown) (no (unknown) (unknown) Current study (units ( unknown) date) was also unknown) evaluated with a Computer Aided Detection (CAD) system. (unknown) (no (unknown) (unknown) : 1970 (units (unknown) date) Acct:[id number] unknown) (unknown) (no (unknown) (unknown) Electronically (units (unknown) date) Signed By: Mark unknown) Lance Beck (unknown) (no (unknown) (unknown) IMPRESSION: (units (un known) date) NEGATIVE unknown) (unknown) (no (unknown) (unknown) [facility] (units (unknown) date) unknown) (unknown) (no (unknown) (unknown) Loc: MAMMO (units (unk nown) date) unknown) (unknown) (no (unknown) (unknown) [id number] (units (unk nown) date) unknown) (unknown) (no (unknown) (unknown) Mammography (units (un known) date) Report unknown) (unknown) (no (unknown) (unknown) NOTE: For (units (unkn own) date) mammograms, a unknown) report in lay terms will be sent to the patient. (unknown) (no (unknown) (unknown) No significant (units (unknown) date) masses, unknown) calcifications, or other findings are seen in either (unknown) (no (unknown) (unknown) Ordering (units (unkno wn) date) Provider: unknown) Berenice Sharpe P.A-C (unknown) (no (unknown) (unknown) Patient: (units (unkno wn) date) Shawanda Raphael unknown) Chidi MR#: (unknown) (no (unknown) (unknown) Procedure: MM (units ( unknown) date) screening mammo unknown) BI (unknown) (no (unknown) (unknown) Signed (units (unkno wn) date) unknown) (unknown) (no (unknown) (unknown) There has been (units (unknown) date) no significant unknown) interval change. (unknown) (no (unknown) (unknown) There is no (units (un known) date) mammographic unknown) evidence of malignancy. A 1 year screening mammogram (unknown) (no (unknown) (unknown) This exam was (units ( unknown) date) interpreted at unknown) Station ID: [id number]. (unknown) (no (unknown) (unknown) a palpable (units (unk nown) date) breast mass, a unknown) negative mammogram must not discourage biopsy of a (unknown) (no (unknown) (unknown) and 06/08/2013 (units (u nknown) date) unknown) (unknown) (no (unknown) (unknown) annual breast (units ( unknown) date) MRI exam along unknown) with mammogram is recommended if the patient's (unknown) (no (unknown) (unknown) breast. (units (unkno wn) date) unknown) (unknown) (no (unknown) (unknown) clinically (units (unk nown) date) unknown) (unknown) (no (unknown) (unknown) copy to: (units (unkno wn) date) LUCIO GALLO unknown) (unknown) (no (unknown) (unknown) guidelines, an (units (unknown) date) unknown) (unknown) (no (unknown) (unknown) is 20% or (units (unkn own) date) greater. unknown) (unknown) (no (unknown) (unknown) is (units (unkno wn) date) unknown) (unknown) (no (unknown) (unknown) lc/penrad:01/09/20 (units (unknown) date) 22 15:29:01 unknown) (unknown) (no (unknown) (unknown) letter sent: (units (u nknown) date) Normal Exam unknown) (unknown) (no (unknown) (unknown) lifetime risk is (units (unknown) date) unknown) (unknown) (no (unknown) (unknown) lifetime risk (units ( unknown) date) unknown) (unknown) (no (unknown) (unknown) mammogram - (units (un known) date) [facility]. unknown) (unknown) (no (unknown) (unknown) management of (units ( unknown) date) unknown) (unknown) (no (unknown) (unknown) recommended. (units (u nknown) date) unknown) (unknown) (no (unknown) (unknown) suspicious (units (unk nown) date) lesion. unknown) Result panel 2 (unknown) (no (unknown) (unknown) (no value) (units (unk nown) date) unknown) (unknown) (no (unknown) (unknown) 01/21/22 (units (unkno wn) date) unknown) (unknown) (no (unknown) (unknown) [address] [place] [address] (units (unknown) date) unknown) (unknown) (no (unknown) (unknown) Accession (units (unkn own) date) Number: unknown) [id number] (unknown) (no (unknown) (unknown) Age/Sex: 51 / F (units (unknown) date) Date of Service: unknown) (unknown) (no (unknown) (unknown) [place], [place] (units ( unknown) date) [id number] unknown) (unknown) (no (unknown) (unknown) Approved by: (units (u nknown) date) Paige Wild, noel) Kiran on 01/21/2022 at 14:23 (unknown) (no (unknown) (unknown) Bones: No (units (unkn own) date) fractures or unknown) dislocations. Pelvic ring appears intact. No (unknown) (no (unknown) (unknown) COMPARISON: (units (un known) date) None. unknown) (unknown) (no (unknown) (unknown) : 1970 (units (unknown) date) Acct:[id number] unknown) (unknown) (no (unknown) (unknown) Dictated by: (units (u nknown) date) Paige Wild, nole) Kiran on 01/21/2022 at 14:23 (unknown) (no (unknown) (unknown) FINDINGS: (units (unkn own) date) unknown) (unknown) (no (unknown) (unknown) IMPRESSION: Very (units (unknown) date) minimal early unknown) arthritic change of the hip joints bilaterally. (unknown) (no (unknown) (unknown) INDICATIONS: (units (u nknown) date) BILATERAL HIP unknown) PAIN (unknown) (no (unknown) (unknown) [facility] (units (unknown) date) unknown) (unknown) (no (unknown) (unknown) Loc: RAD (units (unkno wn) date) unknown) (unknown) (no (unknown) (unknown) [id number] (units (unk nown) date) unknown) (unknown) (no (unknown) (unknown) Ordering (units (unkno wn) date) Provider: unknown) Berenice Sharpe P.A-C (unknown) (no (unknown) (unknown) PROCEDURE: XR (units ( unknown) date) HIP W PEL IF DONE unknown) WAN MIN 4V (unknown) (no (unknown) (unknown) Patient: (units (unkno wn) date) Shawanda Raphael unknown) Chidi MR#: (unknown) (no (unknown) (unknown) Procedure: XR (units ( unknown) date) hip w pel if done unknown) WAN 3to4V (unknown) (no (unknown) (unknown) Signed (units (unkno wn) date) unknown) (unknown) (no (unknown) (unknown) Soft tissues: (units ( unknown) date) The visualized unknown) bowel gas pattern is normal. No suspicious soft (unknown) (no (unknown) (unknown) TECHNIQUE: AP (units ( unknown) date) pelvis with unknown) lateral view(s) of the bilateral hip(s). (unknown) (no (unknown) (unknown) XRay Report (units (un known) date) unknown) (unknown) (no (unknown) (unknown) calcifications. (units (unknown) date) unknown) (unknown) (no (unknown) (unknown) lesions. Minimal (units (unknown) date) periarticular unknown) osteophytes are noted at the hip joints with (unknown) (no (unknown) (unknown) narrowing. No (units ( unknown) date) erosions. unknown) (unknown) (no (unknown) (unknown) suspicious bony (units (unknown) date) unknown) (unknown) (no (unknown) (unknown) tissue (units (unkno wn) date) unknown) (unknown) (no (unknown) (unknown) very minimal (units (u nknown) date) unknown) Result panel 3 (unknown) (no (unknown) (unknown) (no value) (units (unk nown) date) unknown) (unknown) (no (unknown) (unknown) 1. Question (units (un known) date) interval increase unknown) in far right lateral disc protrusion at L3-L4 (unknown) (no (unknown) (unknown) 02/22/22 (units (unkno wn) date) unknown) (unknown) (no (unknown) (unknown) [address] [place] [address] (units (unknown) date) unknown) (unknown) (no (unknown) (unknown) 2. Otherwise (units (u nknown) date) stable findings. unknown) (unknown) (no (unknown) (unknown) 3. Multilevel (units ( unknown) date) facet unknown) arthropathy. (unknown) (no (unknown) (unknown) Accession (units (unkn own) date) Number: unknown) [id number] (unknown) (no (unknown) (unknown) Age/Sex: 51 / F (units (unknown) date) Date of Service: unknown) (unknown) (no (unknown) (unknown) Alignment and (units ( unknown) date) Curvature: There unknown) is normal bony alignment. (unknown) (no (unknown) (unknown) [place], [place] (units ( unknown) date) [id number] unknown) (unknown) (no (unknown) (unknown) Approved by: (units (u nknown) date) cristine Guajardo M.D. on 02/22/2022 at 15:56 (unknown) (no (unknown) (unknown) Bone Marrow: (units (u nknown) date) Marrow is of unknown) normal overall signal. No acute vertebral body (unknown) (no (unknown) (unknown) COMPARISON: (units (un known) date) [facility], unknown) MR, MR LUMBAR SPINE WO CON, 10/15/2019, 12:54. (unknown) (no (unknown) (unknown) : 1970 (units (unknown) date) Acct:[id number] unknown) (unknown) (no (unknown) (unknown) Dictated by: (units (u nknown) date) cristine Guajardo M.D. on 02/22/2022 at 15:50 (unknown) (no (unknown) (unknown) FINDINGS: (units (unkn own) date) unknown) (unknown) (no (unknown) (unknown) IMPRESSION: (units (un known) date) unknown) (unknown) (no (unknown) (unknown) INDICATIONS: (units (u nknown) date) STRAIN OF LUMBAR unknown) REGION/LUMBAR RADICULOPATHY (unknown) (no (unknown) (unknown) Image quality: (units (unknown) date) Excellent. unknown) (unknown) (no (unknown) (unknown) [facility] (units (unknown) date) unknown) (unknown) (no (unknown) (unknown) L1-L2: Stable (units ( unknown) date) findings. Mild unknown) facet hypertrophy. No canal stenosis or (unknown) (no (unknown) (unknown) L2-L3: Stable (units ( unknown) date) findings. Mild unknown) facet hypertrophy. No canal stenosis or (unknown) (no (unknown) (unknown) L3-L4: Continued (units (unknown) date) presence of a far unknown) right lateral disc protrusion, possibly (unknown) (no (unknown) (unknown) L4-L5: Stable (units ( unknown) date) findings. Mild unknown) disc bulge. Prominent bilateral facet (unknown) (no (unknown) (unknown) L5-S1: Stable (units ( unknown) date) findings. unknown) Bilateral facet hypertrophy. Mild disc bulge. No (unknown) (no (unknown) (unknown) Loc: MRI (units (unkno wn) date) unknown) (unknown) (no (unknown) (unknown) [id number] (units (unk nown) date) unknown) (unknown) (no (unknown) (unknown) Magnetic (units (unkno wn) date) Resonance Report unknown) (unknown) (no (unknown) (unknown) Noncontrast (units (un known) date) sagittal T1 spin unknown) echo and T2 fast echo, sagittal STIR, and T2 fast (unknown) (no (unknown) (unknown) Ordering (units (unkno wn) date) Provider: unknown) Sarah Julien P.A-C (unknown) (no (unknown) (unknown) PROCEDURE: MR (units ( unknown) date) LUMBAR SPINE WO unknown) CON (unknown) (no (unknown) (unknown) Paraspinous Soft (units (unknown) date) Tissues: No unknown) paravertebral masses. (unknown) (no (unknown) (unknown) Patient: (units (unkno wn) date) Shawanda Raphael unknown) Chidi MR#: (unknown) (no (unknown) (unknown) Procedure: MR (units ( unknown) date) lumbar spine wo unknown) con (unknown) (no (unknown) (unknown) Signed (units (unkno wn) date) unknown) (unknown) (no (unknown) (unknown) Spinal Cord: (units (u nknown) date) Conus medullaris unknown) terminates at the L1-L2 level. Visualized cord (unknown) (no (unknown) (unknown) T12-L1: Stable (units (unknown) date) findings. No unknown) canal stenosis or foraminal stenosis. Mild facet (unknown) (no (unknown) (unknown) TECHNIQUE: (units (unk nown) date) unknown) (unknown) (no (unknown) (unknown) canal (units (unkno wn) date) unknown) (unknown) (no (unknown) (unknown) compression (units (un known) date) unknown) (unknown) (no (unknown) (unknown) demonstrates (units (u nknown) date) normal signal and unknown) size. (unknown) (no (unknown) (unknown) foraminal (units (unkn own) date) unknown) (unknown) (no (unknown) (unknown) fractures. (units (unk nown) date) unknown) (unknown) (no (unknown) (unknown) hypertrophy. Are (units (unknown) date) unknown) (unknown) (no (unknown) (unknown) hypertrophy. No (units (unknown) date) unknown) (unknown) (no (unknown) (unknown) hypertrophy. (units (u nknown) date) unknown) (unknown) (no (unknown) (unknown) impingement on (units (unknown) date) the right L3 unknown) nerve root far laterally. Question: Does this (unknown) (no (unknown) (unknown) increased (units (unkn own) date) compared to the unknown) previous study, with impingement on the right L3 (unknown) (no (unknown) (unknown) laterally. No (units ( unknown) date) central canal unknown) stenosis. Mild disc bulge and mild facet (unknown) (no (unknown) (unknown) may be (units (unkno wn) date) performed. unknown) (unknown) (no (unknown) (unknown) minimally (units (unkn own) date) unknown) (unknown) (no (unknown) (unknown) nerve root far (units (unknown) date) unknown) (unknown) (no (unknown) (unknown) patient have (units (u nknown) date) unknown) (unknown) (no (unknown) (unknown) significant (units (un known) date) canal stenosis. unknown) Mild bilateral foraminal narrowing. (unknown) (no (unknown) (unknown) spin echo (units (unkn own) date) unknown) (unknown) (no (unknown) (unknown) stenosis or (units (un known) date) foraminal unknown) stenosis. (unknown) (no (unknown) (unknown) stenosis. (units (unkn own) date) unknown) (unknown) (no (unknown) (unknown) symptoms of a (units ( unknown) date) right L3 unknown) radiculitis? (unknown) (no (unknown) (unknown) through the (units (un known) date) lumbar spine. In unknown) cases with scoliosis, additional coronal T2 fast (unknown) (no (unknown) (unknown) with (units (unkno wn) date) unknown) Social History No information. Vital Signs No information.
--- NOTE | 2022-03-10 18:32 | ED Physician Documentation ---
PD HPI CHEST PAIN - Stated complaint Stated Complaint: CHEST PX - Chief complaint Chief Complaint: Cardiac - History obtained from History obtained from: Patient - Additional information Additional information: 51-year-old woman with history of tobacco abuse, emphysema, hypertension, hypercholesterolemia but with no clear history of coronary disease has had sharp anterior chest pain starting yesterday and was more significant today. Has been constant all day. Nothing makes it better or worse. There is no exertional component to it. She has a chronic cough which is not worse than normal. No radiation to the pain. Review of Systems Constitutional: denies: Fever, Chills Nose: denies: Rhinorrhea / runny nose, Congestion Cardiac: denies: Palpitations, Pedal edema, Calf pain Respiratory: denies: Hemoptysis, Wheezing PD PAST MEDICAL HISTORY - Past Medical History Cardiovascular: Hypertension, High cholesterol Respiratory: Asthma, COPD, Pneumonia Neuro: None Endocrine/Autoimmune: Type 2 diabetes GI: GERD HEENT: None Psych: Depression, Anxiety Musculoskeletal: Osteoarthritis, Fibromyalgia - Past Surgical History Past Surgical History: Yes General: Appendectomy Ortho: Arthroscopic surgery /[employer]: Hysterectomy - Present Medications Home Medications: Ambulatory Orders Medication Instructions Recorded Confirmed Alprazolam [Xanax] 2 mg PO BID PRN 11/20/12 05/04/17 Omeprazole 20 mg PO BID PRN 11/20/12 05/04/17 Zolpidem Tartrate [Ambien] 10 mg PO QPM PRN 06/25/13 05/04/17 Atorvastatin Calcium 20 mg PO DAILY 06/15/15 05/04/17 Ibuprofen 200 mg PO QID PRN 06/15/15 05/04/17 Loperamide [Imodium] 2 mg PO QID PRN 06/15/15 05/04/17 Prazosin HCl 1 mg PO QPM 06/15/15 05/04/17 carvediloL [Carvedilol] 3.125 mg PO BID 06/15/15 05/04/17 lisinopriL [Lisinopril] 10 mg PO DAILY 06/15/15 05/04/17 FLUoxetine [PROzac] 03/26/18 03/26/18 Gabapentin 0 03/26/18 03/26/18 Isosorbide Mononitrate 03/26/18 Ibuprofen [Motrin] 800 mg PO Q8H PRN #30 tablet 11/23/18 Oxycodone HCl/Acetaminophen 1 - 2 each PO Q6H PRN #14 tablet 11/23/18 [Percocet 5-325 mg Tablet] Famotidine [Pepcid] 20 mg PO BID #60 tablet 04/21/19 Sucralfate [Carafate] 1 gm PO ACHS #60 tablet 04/21/19 HYDROcod/ACETAM 5/325 [[place] 5/325] 1 - 2 ea PO Q6H PRN #14 tablet 06/21/21 - Allergies Allergies/Adverse Reactions: Allergies Allergy/AdvReac Type Severity Reaction Status Date / Time metformin AdvReac Intermediate violently Verified 03/10/22 17:32 ill morphine AdvReac Intermediate Itching Verified 03/10/22 17:32 adhesive tape Allergy Intermediate Rash Uncoded 06/21/21 16:50 - Social History Does the pt smoke?: Yes Smoking Status: Current every day smoker Does the pt drink ETOH?: Yes Does the pt have substance abuse?: No - Immunizations Immunizations are current?: Yes - POLST Patient has POLST: No PD ED PE NORMAL - Vitals Vital signs reviewed: Yes - General General: Alert and oriented X 3, No acute distress - HEENT HEENT: PERRL, EOMI - Neck Neck: Supple, no meningeal sign, No bony TTP - Cardiac Cardiac: RRR, No murmur - Respiratory Respiratory: No respiratory distress, Clear bilaterally - Abdomen Abdomen: Non tender - Back Back: No CVA TTP, No spinal TTP - Derm Derm: Normal color, Warm and dry - Extremities Extremities: No edema, No calf tenderness / cord - Neuro Neuro: Alert and oriented X 3, Normal speech Results - Vitals Vitals: Vital Signs - 24 hr 03/10/22 17:32 Temperature 36.5 C Heart Rate 101 H Respiratory 20 Rate Blood Pressure 134/97 H O2 Saturation 97 Oxygen O2 Source Room air - EKG (time done) 1836. Rate: Rate (enter#) (89) Rhythm: NSR [place]: Normal Intervals: Normal [place] QRS: Normal Ischemia: Normal ST segments. No: ST elevation c/w ischemia, ST depression - Labs Labs: Laboratory Tests 03/10/22 03/10/22 03/10/22 17:55 17:55 17:55 WBC 10.1 RBC 4.64 Hgb 14.2 Hct 42.8 MCV 92.2 MCH 30.6 MCHC 33.2 RDW 13.5 Plt Count 345 MPV 8.9 Neut # (Auto) 4.6 Lymph # (Auto) 4.4 H [place] # (Auto) 0.8 Eos # (Auto) 0.2 Baso # (Auto) 0.1 Absolute Nucleated RBC 0.00 Nucleated RBC % 0.0 Sodium 133 L Potassium 3.8 Chloride 99 L Carbon Dioxide 25 Anion Gap 9.0 BUN 8 Creatinine 0.8 Estimated GFR (MDRD) 75 L Glucose 126 H Calcium 9.6 Total Bilirubin 0.5 AST 30 ALT 34 Alkaline Phosphatase 87 Troponin I High Sens 3.8 Total Protein 7.7 Albumin 3.9 Globulin 3.8 Albumin/Globulin Ratio 1.0 Lipase 38 PD MEDICAL DECISION MAKING - ED course ED course: 51-year-old woman with chest pain, the history and physical is not too concerning, but she does have multiple risk factors for coronary disease. Ischemic work-up was negative And she was eager for discharge. Departure - Departure Disposition: 01 Home, Self Care Clinical Impression: Chest pain Qualifiers: Chest pain type: unspecified Qualified Code(s): R07.9 - Chest pain, unspecified Condition: Good Record reviewed to determine appropriate education?: Yes Instructions: ED Chest Pain NonCardiac Comments: Follow-up with your doctor, next available appointment, consideration for stress testing should be done. You have multiple risk factors for coronary disease and I encourage you to quit smoking. Return for new or worsening symptoms.
[2022-03-10 18:37] VITALS: BP 119/103
== END 2022-03-10 18:48 | disposition home or self-care (01) ==
LOC: ED 17:27
DX: R07.9 Chest pain, unspecified (principal); R05.3 Chronic cough; J43.9 Emphysema, unspecified; F17.200 Nicotine dependence, unspecified, uncomplicated; I10 Essential (primary) hypertension; E78.00 Pure hypercholesterolemia, unspecified; E11.9 Type 2 diabetes mellitus without complications; K21.9 Gastro-esophageal reflux disease without esophagitis; Z79.899 Other long term (current) drug therapy
CPT/HCPCS: 36415; 80053; 83690; 84484; 85025; 93005; 99282; 99284

== ENCOUNTER 2022-04-30 11:31 | Outpatient (CLI) | payer MEDICARE, MEDICAID | END 2022-04-30 11:32 | disposition critical access hospital (66) | LOC: EMS 11:31 | DX: R55 Syncope and collapse (principal); R00.0 Tachycardia, unspecified; R61 Generalized hyperhidrosis | CPT/HCPCS: A0425; A0427 ==

== ENCOUNTER 2022-04-30 11:51 | Emergency (ER) | payer MEDICARE, MEDICAID ==
--- NOTE | 2022-04-30 12:06 | ED Physician Documentation ---
PD HPI SYNCOPE - Stated complaint Stated Complaint: SYNCOPE - Chief complaint Chief Complaint: Neuro - History obtained from History obtained from: Patient, EMS - Additional information Additional information: Patient is a 51-year-old female who presents to the emergency department complaining of syncope today. She states that for the past 1 week she has had very little oral intake. She has felt weak and dehydrated. She states that food does not taste good to her. No nausea or vomiting. She is also concerned about being constipated. She states that she has lost about 10 pounds in the past week. Denies any fevers or chills. No cough. No congestion. She is a chronic smoker. She felt lightheaded and dizzy today. No headache. no chest pain. no shortness of breath. she states she laid down on the bed and then "passed out". Review of Systems Ten Systems: 10 systems reviewed and negative Constitutional: denies: Fever, Chills Ears: denies: Ear pain Nose: denies: Rhinorrhea / runny nose, Congestion Throat: denies: Sore throat Cardiac: denies: Chest pain / pressure, Palpitations Respiratory: denies: Dyspnea, Cough GI: denies: Vomiting, Diarrhea Skin: denies: Rash Musculoskeletal: denies: Neck pain, Back pain Neurologic: denies: Seizure, Confused, Headache PD PAST MEDICAL HISTORY - Past Medical History Cardiovascular: Hypertension, High cholesterol Respiratory: Asthma, COPD, Pneumonia Neuro: None Endocrine/Autoimmune: Type 2 diabetes GI: GERD HEENT: None Psych: Depression, Anxiety Musculoskeletal: Osteoarthritis, Fibromyalgia - Past Surgical History Past Surgical History: Yes General: Appendectomy Ortho: Arthroscopic surgery /DOMESTIC MAID: Hysterectomy - Present Medications Home Medications: Ambulatory Orders Medication Instructions Recorded Confirmed Alprazolam [Xanax] 2 mg PO BID PRN 11/20/12 05/04/17 Omeprazole 20 mg PO BID PRN 11/20/12 05/04/17 Zolpidem Tartrate [Ambien] 10 mg PO QPM PRN 06/25/13 05/04/17 Atorvastatin Calcium 20 mg PO DAILY 06/15/15 05/04/17 Ibuprofen 200 mg PO QID PRN 06/15/15 05/04/17 Loperamide [Imodium] 2 mg PO QID PRN 06/15/15 05/04/17 Prazosin HCl 1 mg PO QPM 06/15/15 05/04/17 carvediloL [Carvedilol] 3.125 mg PO BID 06/15/15 05/04/17 lisinopriL [Lisinopril] 10 mg PO DAILY 06/15/15 05/04/17 FLUoxetine [PROzac] 03/26/18 03/26/18 Gabapentin 0 03/26/18 03/26/18 Isosorbide Mononitrate 03/26/18 Ibuprofen [Motrin] 800 mg PO Q8H PRN #30 tablet 11/23/18 Oxycodone HCl/Acetaminophen 1 - 2 each PO Q6H PRN #14 tablet 11/23/18 [Percocet 5-325 mg Tablet] Famotidine [Pepcid] 20 mg PO BID #60 tablet 04/21/19 Sucralfate [Carafate] 1 gm PO ACHS #60 tablet 04/21/19 HYDROcod/ACETAM 5/325 [Jones 5/325] 1 - 2 ea PO Q6H PRN #14 tablet 06/21/21 - Allergies Allergies/Adverse Reactions: Allergies Allergy/AdvReac Type Severity Reaction Status Date / Time metformin AdvReac Intermediate violently Verified 03/10/22 17:32 ill morphine AdvReac Intermediate Itching Verified 03/10/22 17:32 adhesive tape Allergy Intermediate Rash Uncoded 06/21/21 16:50 - Social History Does the pt smoke?: Yes Smoking Status: Current every day smoker Does the pt drink ETOH?: Yes Does the pt have substance abuse?: No - Immunizations Immunizations are current?: Yes - POLST Patient has POLST: No PD ED PE NORMAL - Vitals Vital signs reviewed: Yes - General General: Alert and oriented X 3, No acute distress, Well developed/nourished - HEENT HEENT: PERRL, Other (dry lips and tongue) - Neck Neck: Supple, no meningeal sign - Cardiac Cardiac: RRR, Strong equal pulses - Respiratory Respiratory: No respiratory distress, Clear bilaterally - Abdomen Abdomen: Soft, Non tender, Non distended - Back Back: No spinal TTP - Derm Derm: Warm and dry, No rash - Extremities Extremities: No edema, No calf tenderness / cord - Neuro Neuro: Alert and oriented X 3 - Psych Psych: Normal mood, Normal affect Results - Vitals Vitals: Vital Signs - 24 hr 04/30/22 04/30/22 04/30/22 11:58 12:05 12:35 Temperature 36.9 C Heart Rate 94 112 H 98 Heart Rate [ Sitting] Heart Rate [ Standing] Heart Rate [ Supine] Respiratory 17 14 16 Rate Blood Pressure 137/94 H 98/87 H 120/78 Blood Pressure [Sitting] Blood Pressure [Standing] Blood Pressure [Supine] O2 Saturation 97 99 97 04/30/22 04/30/22 04/30/22 13:05 13:09 13:30 Temperature Heart Rate 100 94 Heart Rate [ 114 H Sitting] Heart Rate [ 115 H Standing] Heart Rate [ 106 H Supine] Respiratory 15 15 Rate Blood Pressure 112/90 H 105/81 H Blood Pressure 121/95 H [Sitting] Blood Pressure 95/67 [Standing] Blood Pressure 110/77 [Supine] O2 Saturation 97 98 04/30/22 04/30/22 04/30/22 14:00 14:30 15:00 Temperature 36.5 C Heart Rate 96 96 96 Heart Rate [ Sitting] Heart Rate [ Standing] Heart Rate [ Supine] Respiratory 13 17 18 Rate Blood Pressure 102/69 100/71 107/77 Blood Pressure [Sitting] Blood Pressure [Standing] Blood Pressure [Supine] O2 Saturation 98 97 99 Oxygen O2 Source Room air - EKG (time done) 1204 Rate: Rate (enter#) (110) Rhythm: Sinus tachycardia [place]: Normal Intervals: Normal [place] QRS: Normal Ischemia: Normal ST segments - Labs Labs: Laboratory Tests 04/30/22 04/30/22 04/30/22 12:09 12:09 12:09 WBC 8.9 RBC 5.27 Hgb 15.8 Hct 49.1 H MCV 93.2 MCH 30.0 MCHC 32.2 RDW 13.5 Plt Count 417 MPV 8.9 Neut # (Auto) 5.4 Lymph # (Auto) 2.6 Zavala # (Auto) 0.7 Eos # (Auto) 0.1 Baso # (Auto) 0.1 Absolute Nucleated RBC 0.00 Nucleated RBC % 0.0 Sodium 134 L Potassium 4.7 Chloride 98 L Carbon Dioxide 22 Anion Gap 14.0 H BUN 14 Creatinine 0.9 Estimated GFR (MDRD) 65 L Glucose 148 H Calcium 9.4 Total Bilirubin 0.7 AST 40 ALT 36 Alkaline Phosphatase 74 Troponin I High Sens 2.9 Total Protein 8.0 Albumin 4.1 Globulin 3.9 Albumin/Globulin Ratio 1.1 Lipase 45 Urine Color Urine Clarity Urine pH Ur Specific Mullens Urine Protein Urine Glucose (UA) Urine Ketones Urine Occult Blood Urine Nitrite Urine Bilirubin Urine Urobilinogen Ur Leukocyte Esterase Ur Microscopic Review Urine Culture Comments Nasal Adenovirus (PCR) Nasal B. parapertussis DNA (PCR) Nasal Coronavir 229E PCR Nasal Coronavir HKU1 PCR Nasal Coronavir NL63 PCR Nasal Coronavir OC43 PCR Nasal Enterovir/Rhinovir PCR Nasal Influenza B PCR Nasal Influenza A PCR Nasal Parainfluen 1 PCR Nasal Parainfluen 2 PCR Nasal Parainfluen 3 PCR Nasal Parainfluen 4 PCR Nasal RSV (PCR) Nasal B.pertussis DNA PCR Nasal C.pneumoniae (PCR) Lester Human Metapneumo PCR Nasal M.pneumoniae (PCR) Nasal SARS-CoV-2 (PCR) 04/30/22 04/30/22 13:05 13:36 WBC RBC Hgb Hct MCV MCH MCHC RDW Plt Count MPV Neut # (Auto) Lymph # (Auto) Zavala # (Auto) Eos # (Auto) Baso # (Auto) Absolute Nucleated RBC Nucleated RBC % Sodium Potassium Chloride Carbon Dioxide Anion Gap BUN Creatinine Estimated GFR (MDRD) Glucose Calcium Total Bilirubin AST ALT Alkaline Phosphatase Troponin I High Sens Total Protein Albumin Globulin Albumin/Globulin Ratio Lipase Urine Color YELLOW Urine Clarity CLEAR Urine pH 6.0 Ur Specific Mullens <=1.005 Urine Protein NEGATIVE Urine Glucose (UA) NEGATIVE Urine Ketones TRACE Urine Occult Blood NEGATIVE Urine Nitrite NEGATIVE Urine Bilirubin NEGATIVE Urine Urobilinogen 0.2 (NORMAL) Ur Leukocyte Esterase NEGATIVE Ur Microscopic Review NOT INDICATED Urine Culture Comments NOT INDICATED Nasal Adenovirus (PCR) NOT DETECTED Nasal B. parapertussis DNA (PCR) NOT DETECTED Nasal Coronavir 229E PCR NOT DETECTED Nasal Coronavir HKU1 PCR NOT DETECTED Nasal Coronavir NL63 PCR NOT DETECTED Nasal Coronavir OC43 PCR NOT DETECTED Nasal Enterovir/Rhinovir PCR NOT DETECTED Nasal Influenza B PCR NOT DETECTED Nasal Influenza A PCR NOT DETECTED Nasal Parainfluen 1 PCR NOT DETECTED Nasal Parainfluen 2 PCR NOT DETECTED Nasal Parainfluen 3 PCR NOT DETECTED Nasal Parainfluen 4 PCR NOT DETECTED Nasal RSV (PCR) NOT DETECTED Nasal B.pertussis DNA PCR NOT DETECTED Nasal C.pneumoniae (PCR) NOT DETECTED Lester Human Metapneumo PCR NOT DETECTED Nasal M.pneumoniae (PCR) NOT DETECTED Nasal SARS-CoV-2 (PCR) NOT DETECTED - Rads (name of study) cxr Radiology: Final report received, See rad report PD Medical Decision Making - ED course Complexity details: reviewed results, re-evaluated patient, considered differential, d/w patient ED course: Patient with what appears to be significant dehydration secondary to decreased oral intake. She feels much better after IV fluids. No residual dizziness. Her chest x-ray and EKG do not show any acute abnormalities. No arrhythmia on telemetry monitoring. CBC is normal, mild hyponatremia on her CMP. Negative troponin. No acute findings on urinalysis. Respiratory PCR is negative. Ambulating well. NIH stroke scale of 0. We will have her follow-up with her doctor for further care. Patient counseled regarding signs and symptoms for which I believe and urgent re-evaluation would be necessary. Patient with good understanding of and agreement to plan and is comfortable going home at this time This document was made in part using voice recognition software. While efforts are made to proofread this document, sound alike and grammatical errors may occur. Departure - Departure Disposition: 01 Home, Self Care Clinical Impression: Dehydration Syncope Qualifiers: Syncope type: unspecified Qualified Code(s): R55 - Syncope and collapse Condition: Good Instructions: ED Dehydration, ED Fainting Unkn Cause Follow-Up: Berenice Sharpe PA [Primary Care Provider] - Within 1 week Comments: Please make sure you are drinking plenty of fluids at home. Please return if you worsen. You were given several liters of fluid today. Your test for respiratory viruses is negative. Your heart tests are negative as well. Please follow-up with your doctor for further care. Discharge Date/Time: 04/30/22 15:36
--- OUTSIDE RECORDS SUMMARY | 2022-04-30 12:07 | EXTERNAL MEDICAL SUMMARY RPT | Continuity of Care Document ---
:1970 Author Organization [facility] Address [address] [place] [address] Phone Allergies No information. Encounters No information. Functional Status No information. Immunizations No information. Medications No information. 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 Results/Labs test date author facility value unit interpret ation Result panel 1 (unknown) (no (unknown) (unknown) (no value) (units (unk nown) date) unknown) (unknown) (no (unknown) (unknown) 1. Question (units (un known) date) interval increase unknown) in far right lateral disc protrusion at L3-L4 (unknown) (no (unknown) (unknown) 02/22/22 (units (unkno wn) date) unknown) (unknown) (no (unknown) (unknown) [address] [place] [address] (units (unknown) date) unknown) (unknown) (no (unknown) (unknown) 2. Otherwise (units (u nknown) date) stable findings. unknown) (unknown) (no (unknown) (unknown) 3. Multilevel (units ( unknown) date) facet unknown) arthropathy. (unknown) (no (unknown) (unknown) Accession (units (unkn own) date) Number: unknown) [id number] (unknown) (no (unknown) (unknown) Age/Sex: 51 / F (units (unknown) date) Date of Service: unknown) (unknown) (no (unknown) (unknown) Alignment and (units ( unknown) date) Curvature: There unknown) is normal bony alignment. (unknown) (no (unknown) (unknown) [place] (units ( unknown) date) [id number] unknown) (unknown) (no (unknown) (unknown) Approved by: (units (u nknown) date) Tyrell Jim, noel) Kiran on 02/22/2022 at 15:56 (unknown) (no (unknown) (unknown) Bone Marrow: (units (u nknown) date) Marrow is of unknown) normal overall signal. No acute vertebral body (unknown) (no (unknown) (unknown) COMPARISON: (units (un known) date) [facility], unknown) MR, MR LUMBAR SPINE WO CON, 10/15/2019, 12:54. (unknown) (no (unknown) (unknown) : 1970 (units (unknown) date) Acct:[id number] unknown) (unknown) (no (unknown) (unknown) Dictated by: (units (u nknown) date) Tyrell Jim unknown) Kiran on 02/22/2022 at 15:50 (unknown) (no (unknown) (unknown) FINDINGS: (units (unkn own) date) unknown) (unknown) (no (unknown) (unknown) IMPRESSION: (units (un known) date) unknown) (unknown) (no (unknown) (unknown) INDICATIONS: (units (u nknown) date) STRAIN OF LUMBAR unknown) REGION/LUMBAR RADICULOPATHY (unknown) (no (unknown) (unknown) Image quality: (units (unknown) date) Excellent. unknown) (unknown) (no (unknown) (unknown) [facility] (units (unknown) date) unknown) (unknown) (no (unknown) [...] wn) date) unknown) (unknown) (no (unknown) (unknown) [id number] (units (unk nown) date) unknown) (unknown) (no [...]
[2022-04-30] MEDS ORDERED: SODIUM CHLORIDE 0.9% 2,000 ML IV STA (12:08)
[2022-04-30 12:15] LABS: BASOPHILS # (AUTO) 0.1 10^3/uL (0.0-0.1); BASOPHILS % (AUTO) 0.7 %; EOSINOPHILS # (AUTO) 0.1 10^3/uL (0.0-0.7); EOSINOPHILS % (AUTO) 1.2 %; HCT - HEMATOCRIT 49.1 % (37.0-47.0); HGB - HEMOGLOBIN 15.8 g/dL (12.0-16.0); LYMPHOCYTES # (AUTO) 2.6 10^3/uL (1.5-3.5); MEAN CORPUSCULAR HGB CONC 32.2 g/dL (32.0-36.0); MEAN CORPUSCULAR VOLUME 93.2 fL (81.0-99.0); MEAN PLATELET VOLUME 8.9 fL (7.9-10.8); MONOCYTES # (AUTO) 0.7 10^3/uL (0.0-1.0); MONOCYTES % (AUTO) 7.3 %; NEUTROPHILS # (AUTO) 5.4 10^3/uL (1.5-6.6); NEUTROPHILS % (AUTO) 60.7 %; PLT - PLATELET COUNT 417 10^3/uL (130-450); RED BLOOD COUNT 5.27 10^6/uL (4.20-5.40); RED CELL DISTRIBUTION WIDTH 13.5 % (12.0-15.0); WHITE BLOOD COUNT 8.9 x10^3/uL (4.8-10.8)
--- NOTE | 2022-04-30 12:33 | XRAY Report ---
PROCEDURE: Chest 1 View X-Ray INDICATIONS: syncope TECHNIQUE: One view of the chest was acquired. COMPARISON: 03/10/2022, 06/21/2021 and 04/21/2019. FINDINGS: Surgical changes and devices: None. Lungs and pleura: No pleural effusions or pneumothorax. Lungs are clear. Mediastinum: Mediastinal contours appear normal. Heart size is normal. Bones and chest wall: No suspicious bony lesions. Overlying soft tissues appear unremarkable. IMPRESSION: No acute cardiopulmonary pathology. Reviewed by: Arya Dodge MD on 04/30/2022 12:32 PM PST Approved by: Arya Dodge MD on 04/30/2022 12:32 PM PST Station ID: [id number]
[2022-04-30 12:34] LABS: ALBUMIN 4.1 g/dL (3.2-5.5); ALBUMIN/GLOBULIN RATIO 1.1 (1.0-2.2); BILIRUBIN,TOTAL 0.7 mg/dL (0.2-1.0); CALCIUM 9.4 mg/dL (8.5-10.3); CREATININE 0.9 mg/dL (0.4-1.0); POTASSIUM 4.7 mmol/L (3.5-5.0)
[2022-04-30 13:15] LABS: BILIRUBIN,URINE NEGATIVE (NEGATIVE); GLUCOSE, URINE (UA) NEGATIVE (NEGATIVE); KETONES,URINE (UA) TRACE mg/dL (NEGATIVE); LEUKOCYTE ESTERASE, URINE NEGATIVE (NEGATIVE); NITRITE,URINE NEGATIVE (NEGATIVE); OCCULT BLOOD,URINE NEGATIVE (NEGATIVE); PROTEIN,URINE NEGATIVE (NEGATIVE); UROBILINOGEN,URINE 0.2 (NORMAL) E.U./dL (NORMAL)
[2022-04-30 13:16] LABS: CLARITY,URINE CLEAR (CLEAR)
[2022-04-30] MEDS ORDERED: SODIUM CHLORIDE 0.9% 1,000 ML IV STA (13:27)
[2022-04-30 15:04] VITALS: BP 107/77
[2022-04-30 15:08] LABS: B. PARAPERTUSSIS- RESP PCR PAN NOT DETECTED; B. PERTUSSIS- RESP PCR PANEL NOT DETECTED; CORONAVIRUS 229E-RESP PCR NOT DETECTED; CORONAVIRUS HKU1-RESP PCR NOT DETECTED; CORONAVIRUS NL63-RESP PCR NOT DETECTED; CORONAVIRUS OC43-RESP PCR NOT DETECTED; HUMAN METAPNEUMOVIRUS NOT DETECTED; INFLUENZA A- RESP PCR PANEL NOT DETECTED; INFLUENZA B - RESP PCR PANEL NOT DETECTED; PARAINFLUENZA VIRUS 1 NOT DETECTED; PARAINFLUENZA VIRUS 2 NOT DETECTED; PARAINFLUENZA VIRUS 3 NOT DETECTED; PARAINFLUENZA VIRUS 4 NOT DETECTED; RHINOVIRUS/ENTEROVIRUS NOT DETECTED; RSV- RESP PCR PANEL NOT DETECTED; SARS-CoV-2 -RESP PCR PANEL NOT DETECTED
[2022-04-30 15:09] LABS: C. PNEUMONIAE- RESP PCR PANEL NOT DETECTED; M. PNEUMONIAE- RESP PCR PANEL NOT DETECTED
== END 2022-04-30 15:36 | disposition home or self-care (01) ==
LOC: EDUNIT# → ED 11:51 → SUPCPDRO 11:51 → ED 15:36
DX: E86.0 Dehydration (principal); R55 Syncope and collapse; F17.200 Nicotine dependence, unspecified, uncomplicated; Z20.822 Contact with and (suspected) exposure to COVID-19
CPT/HCPCS: 36415; 80053; 81001; 81003; 83690; 84484; 85025; 87086; 87633; 93005; 96360; 96361; 99284

== ENCOUNTER 2022-06-21 09:52 | Outpatient (CLI) | payer MEDICARE, MEDICAID | END 2022-06-21 09:53 | disposition short-term general hospital (02) | LOC: EMS 09:52 | DX: K14.8 Other diseases of tongue (principal); R21 Rash and other nonspecific skin eruption; R52 Pain, unspecified; R49.0 Dysphonia | CPT/HCPCS: A0425; A0429; A0888 ==

== ENCOUNTER 2023-03-25 13:03 | Outpatient (CLI) | payer MEDICARE, MEDICAID | END 2023-03-25 23:59 | disposition short-term general hospital (02) | LOC: EMS 13:03 | DX: R11.2 Nausea with vomiting, unspecified (principal); R10.84 Generalized abdominal pain; R53.1 Weakness | CPT/HCPCS: A0425; A0427 ==